=== PATIENT | female | born 1990 | race Hispanic/Latino ===

== ENCOUNTER 2018-10-09 17:35 | Outpatient (CLI) | payer MEDICAID ==
[2018-10-09 18:12] VITALS: BP 127/69
[2018-10-09] MEDS ORDERED: LACTATED RINGERS 500 ML IV ONE (18:12)
[2018-10-09 18:53] LABS: Bilirubin,Urine NEG (Negative); Blood,Urine NEG (Negative); Color,Urine Yellow (Yellow); Mucus,Urine FEW /HPF; Protein,Urine <15 mg/dL mg/dL (Negative); Urobilinogen,Urine < 2.0 mg/dL (<2.0); WBC,Urine < 1.0 /HPF (0.0-6.0)
== END 2018-10-09 19:15 | disposition home or self-care (01) ==
LOC: TRG 17:35
PROVIDERS: ATTEND Obstetrics & Gynecology
DX: O47.03 False labor before 37 completed weeks of gestation, third trimester (principal); Z3A.36 36 weeks gestation of pregnancy
CPT/HCPCS: 59025; 81001

== ENCOUNTER 2018-11-10 04:18 | Outpatient (CLI) | payer MEDICAID ==
[2018-11-10 05:47] VITALS: BP 126/73
== END 2018-11-10 05:42 | disposition home or self-care (01) ==
LOC: TRG 04:18
PROVIDERS: ATTEND Obstetrics & Gynecology
DX: O47.1 False labor at or after 37 completed weeks of gestation (principal); Z3A.41 41 weeks gestation of pregnancy
CPT/HCPCS: 59025

== ENCOUNTER 2018-11-10 20:11 | Inpatient (IN) | payer MEDICAID ==
[2018-11-10] MEDS ORDERED: MINERAL OIL PO PRN (20:30)
[2018-11-10] MEDS ORDERED: SUBLIMAZE IV PRN (20:30)
[2018-11-10] MEDS ORDERED: XYLOCAINE 2% INFILTRATI ONE (20:30)
[2018-11-10] MEDS ORDERED: BRETHINE SUB-Q PRN (20:30)
[2018-11-10] MEDS ORDERED: ZOFRAN IV PRN (20:30)
[2018-11-10] MEDS ORDERED: CERVIDIL VG ONE (20:30)
--- NOTE | 2018-11-10 20:47 | History and Physical Report ---
History of Present Illness Date of examination: 11/10/18 (pt presents for IOL @ 41 weeks) Date of admission: 11/10/18 20:11 History of present illness: EDC Confirmation: 10/31/2018 Gestational Age: 11 4/7 weeks Past History : 1 Term Births: 0 Premature Births: 0 Living Children: 0 Para: 0 Mult. Births: 0 Prev : 0 Prev. attempt? none Aborta: 0 Elect. Ab: 0 Spont. Ab: 0 Ectopics: 0 Risk Factors: Smoked Tobacco Use: Never smoker Smokeless Tobacco Use: Never Passive smoke exposure: no Drug use: no HIV high-risk behavior: low risk Alcohol use: yes Type: occ Drinks per day: <1 Seatbelt use: preg-aids counselor % Dietary Counseling: pn yes Past Medical History: migraines, since 2011, takes fioricet Past Surgical History: wisdom teeth removal Past Medical History Surgery (Non-conditioner tender): wisdom teeth removal Abnormal PAP: negative KI Exposure: negative Infertility: negative Uterine Anomaly: negative Uterine Surgery (not C/S): negative Other Gynecologic Problems: negative Family Hx: denies Social Hx: Patient is occ etoh, no tobacco, no drugs 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 of genital herpes: no Partner hx. of genital herpes: no Rash, Viral, or Febrile illness since last LMP? no Varicella/Chicken Pox Status: Immunized TB Risk: no Genetic History Congenital Heart Defect: Mom: no Dad: no Enrique Disease: Mom: no Dad: no Thalassemia Mom: no Dad: no Neural Tube Defect Mom: no Dad: no Down's Syndrome Mom: no Dad: no Bryant-Sachs Mom: no Dad: no Sickle Cell Disease/Trait Mom: no Dad: no Hemophilia Mom: no Dad: no Muscular Dystrophy Mom: no Dad: no Cystic Fibrosis Mom: no Dad: no Eula Chorea Mom: no Dad: no Mental Retardation Mom: no Dad: no Fragile X Mom: no Dad: no Other Genetic/Chromosomal Disorder Mom: no Dad: no Child w/other defect Mom: no Dad: no Enviromental Exposures Enviromental Exposures Reviewed Xray Exposure: no Medication, drug, or alcohol use since LMP: no Chemical/Other Exposure: no Exposure to Cat Liter: no Hx of Parvovirus (Fifth Disease): no Occupational Exposure to Children: none Active Medications (reviewed today): TYLENOL TABS () Current Allergies (reviewed today): * ANY TYPE OF PENICILLAN (Severe) Past History - Obstetrical History Expected Date of Delivery: 10/31/18 Actual Gestation: 41 Week(s) 3 Day(s) : 1 Para: 0 Hx # Term Pregnancies: 0 Number of Pregnancies: 0 Spontaneous Abortions: 0 Induced : 0 Number of Living Children: 0 Medications and Allergies Allergies Allergy/AdvReac Type Severity Reaction Status Date / Time Penicillins Allergy Severe Itching Verified 10/09/18 18:11 shellfish derived AdvReac Severe Anaphylaxis Verified 10/09/18 18:12 Active Meds: Active Medications Ephedrine Sulfate (Ephedrine Sulfate) 10 mg IV Q2M PRN PRN Reason: Hypotension Fentanyl (Sublimaze) 100 mcg IV Q2H PRN PRN Reason: Labor Pain Oxytocin/Sodium Chloride (Pitocin/Ns 20 Unit/1000ml Drip) 20 units in 1,000 mls @ 125 mls/hr IV DIRECT PHILIP Lactated Ringer's (Lactated Ringers) 1,000 mls @ 125 mls/hr IV DIRECT PHILIP Clindamycin HCl (Cleocin 900 Mg/50 Ml) 900 mg in 50 mls @ 100 mls/hr IV Q8HR PHILIP; Protocol Mineral Oil (Mineral Oil) 30 ml PO QHS PRN PRN Reason: Constipation Ondansetron HCl (Zofran) 4 mg IV Q8H PRN PRN Reason: Nausea And Vomiting Terbutaline Sulfate (Brethine) 0.25 mg SUB-Q ONCE PRN PRN Reason: Hyperstimulation/Hypertonicity - Physical Exam Breasts: Positive: deferred Cardiovascular: Regular rate, Normal S1, Normal S2 Lungs: Positive: Normal air movement Abdomen: Positive: normal appearance, soft, normal bowel sounds. Negative: distention, tenderness Genitourinary (Female): Positive: normal external genitalia Vulva: both: normal Vagina: Positive: normal moisture. Negative: discharge Cervix: Negative: lesion, discharge Uterus: Positive: normal size, normal contour Adnexa: both: normal Anus/Rectum: Positive: normal perianal skin, heme negative. Negative: rectal mass, hemorrhoids Extremities: Positive: edema Deep Tendon Reflex Grade: Normal +2 - Obstetrical FHR: category 1 Uterine Contraction Monitor Mode: External Cervical Dilatation: 2.5 (BBOW) Cervical Effacement Percentage: 80 station: -2 Uterine Contraction Pattern: Irregular Uterine Tone Measurement Phase: Resting Uterine Contraction Intensity: Mild Results All other labs normal. GBS POSITIVE HBsAg Screen Negative Negative *1 RPR Non Reactive Non Reactive *2 Rubella Antibodies, IgG 1.42 index Immune >0.99 *3 Non-immune <0.90 Equivocal 0.90 - 0.99 Immune >0.99 ABO Grouping O *4 Rh Factor Positive *5 Please note: Prior records for this patient's ABO / Rh type are not available for additional verification. Antibody Screen Negative Negative *6 WBC 7.9 x10E3/uL 3.4-10.8 *7 RBC 3.79 x10E6/uL 3.77-5.28 *8 Hemoglobin 11.7 g/dL 11.1-15.9 *9 Hematocrit 36.4 % 34.0-46.6 *10 MCV 96 fL 79-97 *11 MCH 30.9 pg 26.6-33.0 *12 MCHC 32.1 g/dL 31.5-35.7 *13 RDW 12.5 % 12.3-15.4 *14 Platelets 258 x10E3/uL 150-379 *15 Neutrophils 76 % Not Estab. *16 Lymphs 18 % Not Estab. *17 Monocytes 6 % Not Estab. *18 Eos 0 % Not Estab. *19 Basos 0 % Not Estab. *20 ! Immature Cells <No Reported Value> *21 Neutrophils (Absolute) 6.0 x10E3/uL 1.4-7.0 *22 Lymphs (Absolute) 1.4 x10E3/uL 0.7-3.1 *23 Monocytes(Absolute) 0.5 x10E3/uL 0.1-0.9 *24 Eos (Absolute) 0.0 x10E3/uL 0.0-0.4 *25 Baso (Absolute) 0.0 x10E3/uL 0.0-0.2 *26 ! Immature Granulocytes 0 % Not Estab. *27 ! Immature Grans (Abs) 0.0 x10E3/uL 0.0-0.1 *28 ! NRBC <No Reported Value> *29 Hematology Comments: <No Reported Value> *30 Tests: (2) Panel [id number] ([id number]) HIV Screen 4th Generation wRfx Non Reactive Non Reactive *31 Tests: (3) HCV Ab w/Rflx to Verification (990639) ! HCV Ab <0.1 s/co ratio 0.0-0.9 *32 Tests: (4) Comment: ([id number]) ! Comment: SPRCS *33 Non reactive HCV antibody screen is consistent with no HCV infection, unless recent infection is suspected or other evidence exists to indicate HCV infection. Tests: (5) Urine Culture, Routine ([id number]) Urine Culture, Routine Final report *34 Tests: (6) Result ([id number]) ! Result 1 No growth *35 Assessment and Plan - Patient Problems (1) 41 weeks gestation of Onset Date: ~11/10/18 Current Visit: Yes Status: Acute Plan to address problem: 28yo @ 41 weeks presents for IOL SVE 2-3,80,-2 GBS+ All orders in EMR
[2018-11-10] MEDS ORDERED: PITOCin/NS 20 UNIT/1000ML DRIP 20 UNITS/1,000 ML BAG IV SCH (21:00)
[2018-11-10] MEDS ORDERED: LACTATED RINGERS 1,000 ML IV SCH (21:00)
[2018-11-10] MEDS ORDERED: PITOCin/NS 30 UNIT/500ML 30,000 MILLIUNITS/500 ML BAG IV ONE (21:13)
[2018-11-10] MEDS: CLEOCIN 900 MG/50 mL 900 MG/50 ML BAG IV SCH (21:19)
[2018-11-10 21:59] LABS: Hematocrit 35.2 % (30.3-42.9); Hemoglobin 12.3 gm/dl (10.1-14.3); Mean Corpuscular HGB Conc 35 % (30-34); Mean Corpuscular Volume 90 fl (79-97); Platelet Count 207 K/mm3 (140-440); Red Cell Distribution Width 12.4 % (13.2-15.2)
[2018-11-10] MEDS ORDERED: PITOCin/NS 30 UNIT/500ML 30 UNITS/500 ML BAG IV SCH (22:00)
[2018-11-11] MEDS ORDERED: AMBIEN PO PRN
--- NOTE | 2018-11-11 05:41 | Progress Note ---
Assessment and Plan Pt breathing and cringing with each ctx SROM mod meconium SVE 4-5,90,-2 Pit @ 2mu Epidural bolus complete anesthesia called. Re-eval after epidural. - Patient Problems (1) 41 weeks gestation of Onset Date: ~11/10/18 Current Visit: Yes Status: Acute Subjective - Subjective Date of service: 11/11/18 (pt desires epidural) Principal diagnosis: IUP @ 41 weeks IOL; Meconium stained fluid Interval history: EDC Confirmation: 10/31/2018 Gestational Age: 11 4/7 weeks Past History : 1 Term Births: 0 Premature Births: 0 Living Children: 0 Para: 0 Mult. Births: 0 Prev : 0 Prev. attempt? none Aborta: 0 Elect. Ab: 0 Spont. Ab: 0 Ectopics: 0 Risk Factors: Smoked Tobacco Use: Never smoker Smokeless Tobacco Use: Never Passive smoke exposure: no Drug use: no HIV high-risk behavior: low risk Alcohol use: yes Type: occ Drinks per day: <1 Seatbelt use: preg-peer counselor % Dietary Counseling: pn yes Past Medical History: migraines, since 2011, takes fioricet Past Surgical History: wisdom teeth removal Past Medical History Surgery (Non-records associate): wisdom teeth removal Abnormal PAP: negative KI Exposure: negative Infertility: negative Uterine Anomaly: negative Uterine Surgery (not C/S): negative Other Gynecologic Problems: negative Family Hx: denies Social Hx: Patient is occ etoh, no tobacco, no drugs 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 of genital herpes: no Partner hx. of genital herpes: no Rash, Viral, or Febrile illness since last LMP? no Varicella/Chicken Pox Status: Immunized TB Risk: no Genetic History Congenital Heart Defect: Mom: no Dad: no Nerique Disease: Mom: no Dad: no Thalassemia Mom: no Dad: no Neural Tube Defect Mom: no Dad: no Down's Syndrome Mom: no Dad: no Bryant-Sachs Mom: no Dad: no Sickle Cell Disease/Trait Mom: no Dad: no Hemophilia Mom: no Dad: no Muscular Dystrophy Mom: no Dad: no Cystic Fibrosis Mom: no Dad: no [place] Chorea Mom: no Dad: no Mental Retardation Mom: no Dad: no Fragile X Mom: no Dad: no Other Genetic/Chromosomal Disorder Mom: no Dad: no Child w/other defect Mom: no Dad: no Enviromental Exposures Enviromental Exposures Reviewed Xray Exposure: no Medication, drug, or alcohol use since LMP: no Chemical/Other Exposure: no Exposure to Cat Liter: no Hx of Parvovirus (Fifth Disease): no Occupational Exposure to Children: none Active Medications (reviewed today): TYLENOL TABS () Current Allergies (reviewed today): * ANY TYPE OF PENICILLAN (Severe) Patient reports: movement normal, contractions Objective - Vital Signs Vital Signs: Vital Signs - 12hr 11/10/18 11/10/18 11/11/18 20:30 21:30 03:32 Pulse Rate 90 75 Respiratory 18 Rate Blood Pressure 125/65 144/65 11/11/18 04:09 Pulse Rate 71 Respiratory Rate Blood Pressure 130/62 - Exam Abdomen: Present: normal appearance, soft. Absent: distention, tenderness Uterus: Present: normal FHR: auscultation normal, category 1 Uterine Contraction Monitor Mode: External Cervical Dilatation: 4.5 (SROM meconium stained fluid) Cervical Effacement Percentage: 90 station: -2 Uterine Contraction Pattern: Regular Uterine Tone Measurement Phase: Resting Uterine Contraction Intensity: Strong/Firm Extremities: normal, edema Deep Tendon Reflex Grade: Normal +2 - Labs Labs: Abnormal Labs 11/10/18 21:35 MCHC 35 H RDW 12.4 L Laboratory Results - last 24 hr 11/10/18 11/10/18 21:35 21:35 WBC 10.4 RBC 3.90 Hgb 12.3 Hct 35.2 MCV 90 MCH 32 MCHC 35 H RDW 12.4 L Plt Count 207 Blood Type O POSITIVE Antibody Screen Negative
[2018-11-11] MEDS ORDERED: NARCAN 2 MG/2 ML IV PRN (06:29)
[2018-11-11] MEDS: CLEOCIN 900 MG/50 mL 900 MG/50 ML BAG IV SCH (06:31)
--- NOTE | 2018-11-11 06:32 | Anesthesia Consultation ---
Anesthesia Consult and Med Hx Date of service: 11/11/18 - Airway Anesthetic Teeth Evaluation: Poor ROM Head & Neck: Adequate Mental/Hyoid Distance: Adequate Mallampati Class: Class III Intubation Access Assessment: Probably Good - Pulmonary Exam CTA: Yes - Cardiac Exam Cardiac Exam: RRR - Pre-Operative Health Status ASA Pre-Surgery Classification: ASA3 Proposed Anesthetic Plan: Epidural - Pulmonary Hx Smoking: No Hx Asthma: No Hx Respiratory Symptoms: No SOB: No COPD: No Home Oxygen Therapy: No Hx Pneumonia: No Hx Sleep Apnea: No - Cardiovascular System Hx Hypertension: No Hx Coronary Artery Disease: No Hx Heart Attack/AMI: No Hx Angina: No Hx Percutaneous Transluminal Coronary Angioplasty (PTCA): No Hx Cardia Arrhythmia: No Hx Pacemaker: No Hx Internal Defibrillator: No Hx Valvular Heart Disease: No Hx Heart Murmur: No Hx Peripheral Vascular Disease: No - Central Nervous System Hx Neuromuscular Disorder: No Hx Seizures: No CVA: No Hx Back Pain: No Hx Psychiatric Problems: No - Gastrointestinal Hx Ulcer: No Hx Gastroesophageal Reflux Disease: Yes - Endocrine Hx Renal Disease: No Hx End Stage Renal Disease: No Hx Cirrhosis: No Hx Liver Disease: No Hx Insulin Dependent Diabetes: No Hx Non-Insulin Dependent Diabetes: No Hx Thyroid Disease: No Hx Hypothyroidism: No Hx Hyperthyroidism: No - Hematic Hx Anemia: No Hx Sickle Cell Disease: No - Other Systems Hx Alcohol Use: No Hx Substance Use: No Hx Cancer: No Hx Obesity: Yes (bmi 42)
--- NOTE | 2018-11-11 06:38 | Event Note ---
Date: 11/11/18 (pt comfortable with epidural) Called urgently to room Deep variables following epdural placement SVE 7,90,-2 ISE/IUPC placed Pitocin off. Turned/repositioned, O2 vis facemask, fluid bolus FHR now Cat 2 with marked variability with variable decels Will continue close observation made aware
[2018-11-11] MEDS ORDERED: fentaNYL-BUPIV 2 MCG/ML-0.125% 200 MCG/100 ML BAG EPIDURAL SCH (07:00)
[2018-11-11] MEDS ORDERED: GENTAMICIN/NS 80 MG/100 ML 100 ML IV NR (07:00)
[2018-11-11] MEDS ORDERED: PEPCID IV ONE ×2 (07:16→07:21)
[2018-11-11] MEDS ORDERED: GENTAMICIN 80 MG in NACL 0.9% 100 ML IV ONE (07:16)
[2018-11-11] MEDS ORDERED: BICITRA PO ONE (07:16)
[2018-11-11] MEDS ORDERED: REGLAN IV ONE (07:16)
[2018-11-11] MEDS ORDERED: GENTAMICIN/NS 80 MG/100 ML 100 ML IV ONE (07:21)
[2018-11-11] MEDS ORDERED: REGLAN ONE (07:21)
--- NOTE | 2018-11-11 07:23 | Progress Note ---
Assessment and Plan Dr.Royster hall Pt made aware of need for section Risks damage to surrounding organs, hysterectomy, need for blood transfusion, need for c/s with future pregnancies Consented - Patient Problems (1) 41 weeks gestation of Onset Date: ~11/10/18 Current Visit: Yes Status: Acute Subjective - Subjective Date of service: 11/11/18 (deep prolong deceleration; decision to move to C/S) Principal diagnosis: IUP @ 41 weeks IOL; Meconium stained fluid Interval history: EDC Confirmation: 10/31/2018 Gestational Age: 11 4/7 weeks Past History : 1 Term Births: 0 Premature Births: 0 Living Children: 0 Para: 0 Mult. Births: 0 Prev : 0 Prev. attempt? none Aborta: 0 Elect. Ab: 0 Spont. Ab: 0 Ectopics: 0 Risk Factors: Smoked Tobacco Use: Never smoker Smokeless Tobacco Use: Never Passive smoke exposure: no Drug use: no HIV high-risk behavior: low risk Alcohol use: yes Type: occ Drinks per day: <1 Seatbelt use: preg-residential youth counselor % Dietary Counseling: pn yes Past Medical History: migraines, since 2011, takes fioricet Past Surgical History: wisdom teeth removal Past Medical History Surgery (Non-wafer fabrication technician): wisdom teeth removal Abnormal PAP: negative KI Exposure: negative Infertility: negative Uterine Anomaly: negative Uterine Surgery (not C/S): negative Other Gynecologic Problems: negative Family Hx: denies Social Hx: Patient is occ etoh, no tobacco, 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 of genital herpes: no Partner hx. of genital herpes: no Rash, Viral, or Febrile illness since last LMP? no Varicella/Chicken Pox Status: Immunized TB Risk: no Genetic History Congenital Heart Defect: Mom: no Dad: no Enrique Disease: Mom: no Dad: no Thalassemia Mom: no Dad: no Neural Tube Defect Mom: no Dad: no Down's Syndrome Mom: no Dad: no Bryant-Sachs Mom: no Dad: no Sickle Cell Disease/Trait Mom: no Dad: no Hemophilia Mom: no Dad: no Muscular Dystrophy Mom: no Dad: no Cystic Fibrosis Mom: no Dad: no [place] Chorea Mom: no Dad: no Mental Retardation Mom: no Dad: no Fragile X Mom: no Dad: no Other Genetic/Chromosomal Disorder Mom: no Dad: no Child w/other defect Mom: no Dad: no Enviromental Exposures Enviromental Exposures Reviewed Xray Exposure: no Medication, drug, or alcohol use since LMP: no Chemical/Other Exposure: no Exposure to Cat Liter: no Hx of Parvovirus (Fifth Disease): no Occupational Exposure to Children: none Active Medications (reviewed today): TYLENOL TABS () Current Allergies (reviewed today): * ANY TYPE OF PENICILLAN (Severe) Patient reports: movement normal, contractions Objective - Vital Signs Vital Signs: Vital Signs - 12hr 11/10/18 11/10/18 11/11/18 20:30 21:30 03:32 Pulse Rate 90 75 Respiratory 18 Rate Blood Pressure 125/65 144/65 11/11/18 11/11/18 11/11/18 04:09 05:44 06:03 Pulse Rate 71 93 H 88 Respiratory Rate Blood Pressure 130/62 129/76 137/71 11/11/18 11/11/18 11/11/18 06:05 06:10 06:12 Pulse Rate 76 115 H 90 Respiratory Rate Blood Pressure 119/64 103/48 111/59 11/11/18 11/11/18 11/11/18 06:14 06:16 06:18 Pulse Rate 78 96 H 86 Respiratory Rate Blood Pressure 117/64 118/62 123/68 11/11/18 11/11/18 11/11/18 06:20 06:22 06:25 Pulse Rate 100 H 126 H 110 H Respiratory Rate Blood Pressure 118/61 105/59 119/58 11/11/18 11/11/18 11/11/18 06:26 06:33 06:40 Pulse Rate 72 72 81 Respiratory Rate Blood Pressure 117/54 115/65 114/53 11/11/18 11/11/18 11/11/18 06:44 06:49 06:55 Pulse Rate 72 69 68 Respiratory Rate Blood Pressure 130/60 124/56 127/60 - Exam Breasts: deferred Cardiovascular: Regular rate Lungs: Normal air movement Abdomen: Present: normal appearance, soft. Absent: distention, tenderness Uterus: Present: normal FHR: auscultation normal, category 3 Uterine Contraction Monitor Mode: Internal Cervical Dilatation: 7 Cervical Effacement Percentage: 90 station: -3 Uterine Contraction Pattern: Regular Uterine Tone Measurement Phase: Resting Uterine Contraction Intensity: Moderate Extremities: edema Deep Tendon Reflex Grade: Normal +2 - Labs Labs: Abnormal Labs 11/10/18 21:35 MCHC 35 H RDW 12.4 L Laboratory Results - last 24 hr 11/10/18 11/10/18 21:35 21:35 WBC 10.4 RBC 3.90 Hgb 12.3 Hct 35.2 MCV 90 MCH 32 MCHC 35 H RDW 12.4 L Plt Count 207 Blood Type O POSITIVE Antibody Screen Negative
[2018-11-11] MEDS ORDERED: MARCAINE 0.5% INFILTRATI ONE (07:25)
[2018-11-11] MEDS ORDERED: XYLOCAINE MPF 2% ONE ×3 (07:28→08:05)
[2018-11-11] MEDS ORDERED: ZOFRAN ONE (07:28)
[2018-11-11] MEDS ORDERED: TORADOL ONE (07:28)
[2018-11-11] MEDS ORDERED: NACL 0.9% IR ONE (07:40)
[2018-11-11] MEDS ORDERED: WATER FOR IRRIG STERILE IR ONE (07:40)
[2018-11-11] MEDS ORDERED: DIPRIVAN 10 MG/ML IV ONE (07:43)
[2018-11-11] MEDS ORDERED: LACTATED RINGERS 1,000 ML IV SCH (08:00)
[2018-11-11] MEDS ORDERED: PITOCin/NS 20 UNIT/1000ML DRIP 20 UNITS/1,000 ML BAG IV SCH ×2 (08:00→16:15)
[2018-11-11] MEDS ORDERED: QUELICIN ONE (08:14)
--- NOTE | 2018-11-11 08:44 | Anesthesia Day of Surgery ---
Anesthesia Day of Surgery - Day of Surgery Patient Examined: Yes Patient H&P Reviewed: Yes Patient is NPO: Yes Beta Blockers: No Cardiac Clearance: No Pulmonary Clearance: No Curtis's Test: N/A
[2018-11-11] MEDS ORDERED: DILAUDID IV PRN ×2 (08:46)
[2018-11-11] MEDS ORDERED: BENADRYL IV PRN (08:46)
--- NOTE | 2018-11-11 08:46 | Post Anesthesia Evaluation ---
- Post Anesthesia Evaluation Patient Participated: Yes Airway Patent: Yes Stable Respiratory Function: Yes Nausea/Vomiting: No Temp > 96.8F: Yes Pain Manageable: Yes Adequeate Hydration: Yes Anesthesia Complications: No Block Receding Appropriately: Yes Patient on Ventilator: Yes
[2018-11-11] MEDS ORDERED: SODIUM CHLORIDE FLUSH SYRINGE 10 ML IV NR ×2 (09:00→16:15)
--- NOTE | 2018-11-11 09:01 | Operative Report ---
Operative Report Operative Report: Date: 11/11/2018 Preoperative diagnosis: 1. Intrauterine at 41 weeks 2. Nonreassuring heart rate tracing, category 3 heart tones 3. Pelvic mass index 42 Postoperative diagnosis: 1. Intrauterine at 41 weeks 2. Nonreassuring heart rate tracing, category 3 heart tones 3. Pelvic mass index 42 Procedure: Low uterine transverse incision for delivery Surgeon: Melita Posadas MD Life Educator: Noemí Mixon CNM Anesthesia: Epidural Anesthesiologist: [] Estimated blood loss: 800 mL Urine out: 100 mL Findings: Live born female . Weight 7 lbs. 5 oz. Apgars 7 at 1 minute and 8 at 5 minutes. Uterus grossly normal, tubes grossly normal, ovaries grossly normal. Procedure: At my arrival patient was being transferred to the OR table due to report from [facility] of no reassuring heart rate tracing category 3 heart rate tracing. In the OR patient was alert and appropriately responsive questions were asked, epidural anesthesia was bolused. heart tones were unable to be auscultated. She was then placed in the left lateral tilt position, and prepped and draped in the usual sterile fashion. Timeout was performed, and an appropriate level of anesthesia was noted, a Pfannenstiel incision was made and extended to the fascia which was incised and extended in the lateral directions. The overlying fascia was sharply dissected away from the underlying rectus muscles in the superior and inferior directions. The midline was entered bluntly. The vesicouterine fold was incised and with blunt dissection the bladder flap was created. A transverse incision was made in the lower uterine segment and extended in superiolateral direction with finger fractionation. Thick meconium stained fluid was noted. The infant was delivered from cephalic LOT position. Mouth and nose were bulb suctioned. Spontaneous cry and excellent tone were noted. Cord was doubly clamped and cut. The was given to /resuscitation team present. The placenta was manually extracted. The uterus was then exteriorized and cleared of any further products of conception or placental tissue. The incision was reapproximated using 0 Vicryl in a running interlocking stitch. Grossly normal uterus, tubes and ovaries were noted. Once hemostasis was noted, the uterus was allowed back into the pelvic cavity. The pelvis was irrigated with warm normal saline. Again hemostasis was noted . Surgicel applied for further hemostasis. Interceed was then placed to prevent adhesions. Then attention was turned to the rectus muscles. Once hemostasis was noted, the fascia was reapproximated using 0 Vicryl running stitch fashion. Once hemostasis was noted, the subcuticular adipose tissue was reapproximated using 0 Vicryl in simple interrupted fashion 3. Oncethis was noted, skin incision was reapproximated using 4-0 Vicryl on a Stuart needle in a subcuticular manner. Counts were correct 3. Patient tolerated procedure well state recovery room in stable condition.
[2018-11-11] MEDS ORDERED: ZOFRAN IV PRN ×2 (12:00→16:15)
[2018-11-11] MEDS ORDERED: MILK OF MAGNESIA PO PRN (16:15)
[2018-11-11] MEDS ORDERED: MYLICON PO PRN (16:15)
[2018-11-11] MEDS ORDERED: TUCKS PAD TP PRN (16:15)
[2018-11-11] MEDS ORDERED: NARCAN 0.4 MG/1 ML IV PRN (16:15)
[2018-11-11] MEDS ORDERED: LANSINOH TP PRN (16:15)
[2018-11-11] MEDS ORDERED: MORPHINE IV PRN ×2 (16:15)
[2018-11-11] MEDS ORDERED: D5LR 1,000 ML IV SCH (16:15)
[2018-11-11] MEDS ORDERED: PERCOCET 5/325 PO PRN (16:15)
[2018-11-11] MEDS ORDERED: TYLENOL PO PRN (16:15)
[2018-11-11] MEDS: TORADOL IV SCH ×2 (16:29→21:43)
[2018-11-11] MEDS: CLEOCIN 600 MG/50 mL 600 MG/50 ML BAG IV SCH (17:00)
[2018-11-11 21:16] LABS: Hematocrit 27.9 % (30.3-42.9); Hemoglobin 9.3 gm/dl (10.1-14.3)
[2018-11-12] MEDS: CLEOCIN 600 MG/50 mL 600 MG/50 ML BAG IV SCH (01:34)
[2018-11-12] MEDS: TORADOL IV SCH ×2 (05:19→10:45)
[2018-11-12] MEDS ORDERED: BOOSTRIX IM ONE (06:00)
--- NOTE | 2018-11-12 08:01 | Progress Note ---
Assessment and Plan - Patient Problems (1) delivery delivered Onset Date: ~11/11/18 Current Visit: Yes Status: Acute Plan to address problem: Pt resting VSS FF @ umb Lochia small Dressing D&I H&H 12/19 drop r/t blood loss from surgery No s/sx of anemia Doing well s/p c/s P: continue pathway Advance diet and activity as tolerated Remove dressing today. Baby remains in NICU with "breathing concerns" Subjective - Subjective Date of service: 11/12/18 (no c/o voiced) Principal diagnosis: Day # 1 s/p section for distress Interval history: EDC Confirmation: 10/31/2018 Gestational Age: 11 4/7 weeks Past History : 1 Term Births: 0 Premature Births: 0 Living Children: 0 Para: 0 Mult. Births: 0 Prev : 0 Prev. attempt? none Aborta: 0 Elect. Ab: 0 Spont. Ab: 0 Ectopics: 0 Risk Factors: Smoked Tobacco Use: Never smoker Smokeless Tobacco Use: Never Passive smoke exposure: no Drug use: no HIV high-risk behavior: low risk Alcohol use: yes Type: occ Drinks per day: <1 Seatbelt use: preg-deputy general counsel % Dietary Counseling: pn yes Past Medical History: migraines, since 2011, takes fioricet Past Surgical History: wisdom teeth removal Past Medical History Surgery (Non-buildings painter): wisdom teeth removal Abnormal PAP: negative KI Exposure: negative Infertility: negative Uterine Anomaly: negative Uterine Surgery (not C/S): negative Other Gynecologic Problems: negative Family Hx: denies Social Hx: Patient is occ etoh, no tobacco, no drugs 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 of genital herpes: no Partner hx. of genital herpes: no Rash, Viral, or Febrile illness since last LMP? no Varicella/Chicken Pox Status: Immunized TB Risk: no Genetic History Congenital Heart Defect: Mom: no Dad: no Enrique Disease: Mom: no Dad: no Thalassemia Mom: no Dad: no Neural Tube Defect Mom: no Dad: no Down's Syndrome Mom: no Dad: no Bryant-Sachs Mom: no Dad: no Sickle Cell Disease/Trait Mom: no Dad: no Hemophilia Mom: no Dad: no Muscular Dystrophy Mom: no Dad: no Cystic Fibrosis Mom: no Dad: no [place] Chorea Mom: no Dad: no Mental Retardation Mom: no Dad: no Fragile X Mom: no Dad: no Other Genetic/Chromosomal Disorder Mom: no Dad: no Child w/other defect Mom: no Dad: no Enviromental Exposures Enviromental Exposures Reviewed Xray Exposure: no Medication, drug, or alcohol use since LMP: no Chemical/Other Exposure: no Exposure to Cat Liter: no Hx of Parvovirus (Fifth Disease): no Occupational Exposure to Children: none Active Medications (reviewed today): TYLENOL TABS () Current Allergies (reviewed today): * ANY TYPE OF PENICILLAN (Severe) Patient reports: appetite normal, voiding normally, pain well controlled, flatus, ambulating normally [place]: in NICU Objective - Vital Signs Latest vital signs: Vital Signs Temp Pulse Resp BP BP Pulse Ox 11/12/18 05:16 98.0 F 81 20 138/72 100 11/12/18 00:05 98.0 F 100 H 20 124/70 97 11/11/18 21:44 97.9 F 100 H 20 147/83 98 11/11/18 15:20 98.7 F 88 20 115/68 11/11/18 12:25 98.7 F 78 20 102/63 11/11/18 11:08 98.1 F 87 20 103/43 11/11/18 09:50 77 19 105/53 98 11/11/18 09:35 73 14 104/48 99 11/11/18 09:20 78 19 106/84 97 11/11/18 09:05 78 18 103/55 97 11/11/18 08:50 74 18 117/69 98 11/11/18 08:45 74 18 118/69 98 11/11/18 08:40 68 19 127/68 100 11/11/18 08:35 98.4 F 68 22 110/56 98 Intake and Output 11/11/18 11/12/18 11/12/18 22:59 06:59 14:59 Intake Total 500 120 Output Total 510 500 Balance -10 -380 Intake: IV 50 CLEOCIN 600 MG/50 mL 600 50 mg In 50 ml @ 100 mls/hr IV Q8H [facility] Rx#:[id number] Oral 450 120 Output: Urine 510 500 Indwelling Catheter 510 Void 500 Other: Total, Intake Amount 90 120 Total, Output Amount 400 500 - Exam Breasts: Present: normal Cardiovascular: Present: Regular rate Lungs: Present: Normal air movement Abdomen: Present: normal appearance, soft, normal bowel sounds Uterus: Present: normal, firm, fundal height at umbilicus Extremities: Present: normal Deep Tendon Reflex Grade: Normal +2 Incision: Present: normal, dry, intact, dressed (to be removed this AM) - Labs Labs: Abnormal lab results 11/11/18 Range/Units 21:04 Hgb 9.3 L D (10.1-14.3) gm/dl Hct 27.9 L D (30.3-42.9) %
[2018-11-12] MEDS: IBUPROFEN PO PRN ×2 (15:35→22:10)
[2018-11-13] MEDS: IBUPROFEN PO PRN ×3 (03:39→23:06)
--- NOTE | 2018-11-13 09:20 | Progress Note ---
Assessment and Plan POD2 Patient sitting on side of bed pumping breast mild for in NICU. Pt reports feeling well, she denies any complaints or concerns. Pt reports pain is well controlled with pain medications ordered. Fundus is firm, ML, U/2. Vaginal bleeding small, patient denies any heavy bleeding or clots. Incision is well- approximated, healing well, no bleeding or drainage noted, no s/s infection. DWP hygiene./care for incisional area. Encouraged pt to continue frequent ambulation and use of IS. DWP post delivery H&H, she denies any dizziness or feeling faint with ambulation or position changes. VSSAF. Continue current post op pathway. Plan for discharge tomorrow morning. Subjective - Subjective Date of service: 11/13/18 Principal diagnosis: Day # 2 s/p section for distress Patient reports: appetite normal, voiding normally, pain well controlled, flatus, ambulating normally [place]: doing well, in NICU Objective - Vital Signs Latest vital signs: Vital Signs Temp Pulse Resp BP BP Pulse Ox 11/13/18 01:26 97.8 F 91 H 18 130/73 98 11/12/18 18:00 0 F L 0 L 0 L 1/1 0 L Intake and Output 11/12/18 11/13/18 11/13/18 23:59 07:59 15:59 Intake Total 120 360 Output Total 500 Balance -380 360 Intake: Oral 120 Intake, Free Water 360 Output: Urine 500 Void 500 Other: Total, Intake Amount 120 Total, Output Amount 500 # Voids Void 1 - Exam Breasts: Present: normal Cardiovascular: Present: Regular rate, Normal S1, Normal S2 Lungs: Present: Clear to auscultation, Normal air movement Abdomen: Present: normal appearance, soft, normal bowel sounds Vulva: both: normal Uterus: Present: normal, firm, fundal height below umbilicus Extremities: Present: normal Deep Tendon Reflex Grade: Normal +2 Incision: Present: normal, dry, intact
[2018-11-13] MEDS: COLACE PO SCH ×2 (12:26→23:06)
[2018-11-13] MEDS: FEOSOL PO SCH ×2 (12:26→23:06)
--- NOTE | 2018-11-14 08:32 | Discharge Summary ---
Providers - Providers Date of Admission: 11/10/18 20:11 Date of discharge: 11/14/18 Attending physician: AMBER RAMÍREZ 11/11/18 16:15 Consult to Support Services Specialist [CONS] Routine Reason For Exam: Primary care physician: AMBER RAMÍREZ Hospitalization Reason for admission: Post dates induction Condition: Good Pertinent studies: Postop H/H 9.3/27.9, asymptomatic anemia d/t acute blood loss. Procedures: Primary C/S. Hospital course: Uncomplicated C/S and postop course. Disposition: DC-01 TO HOME OR SELFCARE - Discharge Diagnoses (1) delivery delivered Status: Acute Core Measure Documentation - Palliative Care Palliative Care/ Comfort Measures: Not Applicable - Core Measures Any of the following diagnoses?: none Exam - Constitutional Vitals: Temp Pulse Resp BP Pulse Ox 97.8 F 95 H 18 130/73 96 11/14/18 01:41 11/14/18 01:41 11/14/18 01:41 11/14/18 01:41 11/14/18 01:41 General appearance: Present: no acute distress, well-nourished - EENT Eyes: Present: PERRL ENT: hearing intact, clear oral mucosa - Neck Neck: Present: supple, normal ROM - Respiratory Respiratory effort: normal Respiratory: bilateral: CTA - Cardiovascular Rhythm: regular Heart Sounds: Present: S1 & S2. Absent: rub, click - Extremities Extremities: pulses symmetrical, No edema Peripheral Pulses: within normal limits - Abdominal General gastrointestinal: Present: soft, non-tender, non-distended, normal bowel sounds Female genitourinary: Present: normal - Rectal Rectal Exam: deferred - Integumentary Integumentary: Present: clear, warm, dry - Musculoskeletal Musculoskeletal: gait normal, strength equal bilaterally - Psychiatric Psychiatric: appropriate mood/affect, intact judgment & insight - Neurologic Neurologic: CNII-XII intact, moves all extremities - Additional findings Additional findings: Lochia scant. Fundus firm. Incision dry and intact. Pumping breastmilk for in NICU. Plan Activity: advance as tolerated Diet: regular Wound: open to air, keep clean and dry Follow up with: AMBER RAMÍREZ MD [Primary Care Provider] - 7 Days (Congratulations. Please contact our office at [phone] to schedule your incision check in 1 week. Call for any questions or concerns.) Prescriptions: Docusate Sodium [Colace] 100 mg PO BID PRN #60 capsule PRN Reason: Constipation Ferrous Sulfate [Feosol 325 MG tab] 325 mg PO BID #60 tablet Ibuprofen [Motrin 800 MG tab] 800 mg PO TID PRN #30 tablet PRN Reason: Pain oxyCODONE /ACETAMINOPHEN [Percocet 5/325 mg] 1 - 2 tab PO Q4HR PRN #20 tablet PRN Reason: Pain
[2018-11-14 08:42] VITALS: BP 136/87
[2018-11-14] MEDS: COLACE PO SCH (10:01)
[2018-11-14] MEDS: FEOSOL PO SCH (10:01)
[2018-11-14] MEDS: IBUPROFEN PO PRN (10:06)
== END 2018-11-14 13:50 | disposition home or self-care (01) | DRG 765 ==
LOC: LD 20:11 → OB 11-11 10:51
PROVIDERS: ADMIT Obstetrics & Gynecology; ATTEND Obstetrics & Gynecology
PROC: 10D00Z1 Extraction of Products of Conception, Low, Open Approach (ICD-10-PCS; principal; 2018-11-11)
DX: O48.0 Post-term pregnancy (principal); D62 Acute posthemorrhagic anemia; O99.824 Streptococcus B carrier state complicating childbirth; O77.0 Labor and delivery complicated by meconium in amniotic fluid; O99.62 Diseases of the digestive system complicating childbirth; K21.9 Gastro-esophageal reflux disease without esophagitis; O99.214 Obesity complicating childbirth; E66.9 Obesity, unspecified; O76 Abnormality in fetal heart rate and rhythm complicating labor and delivery; R19.00 Intra-abdominal and pelvic swelling, mass and lump, unspecified site; O99.89 Other specified diseases and conditions complicating pregnancy, childbirth and the puerperium; O99.02 Anemia complicating childbirth; Z37.0 Single live birth; Z3A.41 41 weeks gestation of pregnancy; Z88.0 Allergy status to penicillin; Z91.013 Allergy to seafood
CPT/HCPCS: 36415; 85014; 85018; 85027; 86592; 86850; 86900; 86901; 88307; 90471; 90715; 96360; 96365; G0378; C1765; J0330; J1580; J1885; J2405; J2590; J2704; J2765; J3010; J7120; J7121

== ENCOUNTER 2018-11-23 12:50 | Inpatient (IN) | payer MEDICAID ==
[2018-11-23] MEDS ORDERED: CLEOCIN 600 MG/50 mL 600 MG/50 ML BAG IV SCH (14:00)
--- NOTE | 2018-11-23 18:35 | History and Physical Report ---
History of Present Illness Date of examination: 11/23/18 Date of admission: 11/23/18 16:45 Chief complaint: Wound infection History of present illness: This is a 28 year-old female s/p delivery 11/11/2018 for nonreassuring heart tracing that occurred after progressing to 7cm cervical dilation on induction day 2 for post term. She presented to the office Saturday for incision check. At that time the area above and below the incision was red, firmess noted above incision appearing to be cellulitis. Patient denied fevers but reported some night sweats. After assessing the incision, she was started on Bactrim (no defects were noted at the incision site). She called today complaining of yellow drainage from incision. She denies fever or any other changes with incision. She's admitted for IV ABX. Patient is agreeable with plan. Past History : 1 Term Births: 1 Premature Births: 0 Living Children: 1 Para: 0 Mult. Births: 0 Prev : 1 Aborta: 0 Elect. Ab: 0 Spont. Ab: 0 Ectopics: 0 Risk Factors: Smoked Tobacco Use: Never smoker Smokeless Tobacco Use: Never Passive smoke exposure: no Drug use: no HIV high-risk behavior: low risk Alcohol use: yes Type: occ Drinks per day: <1 Seatbelt use: preg-career guidance counselor % Dietary Counseling: pn yes Past Medical History: migraines, since 2011, takes fioricet Past Surgical History: wisdom teeth removal delivery Abnormal PAP: negative KI Exposure: negative Infertility: negative Uterine Anomaly: negative Uterine Surgery (not C/S): negative Other Gynecologic Problems: negative Family Hx: denies Social Hx: Patient is occ etoh, no tobacco, 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 of genital herpes: no Partner hx. of genital herpes: no Rash, Viral, or Febrile illness since last LMP? no Varicella/Chicken Pox Status: Immunized TB Risk: no Enviromental Exposures Enviromental Exposures Reviewed Xray Exposure: no Medication, drug, or alcohol use since LMP: no Chemical/Other Exposure: no Exposure to Cat Liter: no Hx of Parvovirus (Fifth Disease): no Occupational Exposure to Children: none Active Medications (reviewed today): PNV BACTRIM DS Current Allergies (reviewed today): * ANY TYPE OF PENICILLAN (Severe) SHELLFISH Medications and Allergies Allergies Allergy/AdvReac Type Severity Reaction Status Date / Time Penicillins Allergy Severe Itching Verified 10/09/18 18:11 shellfish derived AdvReac Severe Anaphylaxis Verified 10/09/18 18:12 Home Medications Medication Instructions Recorded Confirmed Last Taken Type Ibuprofen [Motrin 800 MG tab] 800 mg PO TID PRN #30 tablet 11/11/18 Unknown Rx Pnv,Calcium 72/Iron/Folic Acid 1 tab PO DAILY 11/11/18 11/11/18 1 Day Ago History [Pnv Plus Multivit Tab] ~11/10/18 oxyCODONE /ACETAMINOPHEN [Percocet 1 - 2 tab PO Q4HR PRN #20 tablet 11/11/18 Unknown Rx 5/325 mg] Docusate Sodium [Colace] 100 mg PO BID PRN #60 capsule 11/13/18 Unknown Rx Ferrous Sulfate [Feosol 325 MG tab] 325 mg PO BID #60 tablet 11/13/18 Unknown Rx Active Meds: Active Medications Clindamycin HCl (Cleocin 600 Mg/50 Ml) 600 mg in 50 mls @ 100 mls/hr IV Q8HR [facility]; Protocol Review of Systems All systems: negative Gastrointestinal: nausea Exam - Constitutional Vitals: Temp Pulse Resp BP Pulse Ox 99.5 F 97 H 14 139/75 97 11/23/18 18:23 11/23/18 18:23 11/23/18 18:23 11/23/18 18:23 11/23/18 18:23 General appearance: Present: no acute distress - Respiratory Respiratory effort: normal Respiratory: bilateral: CTA - Extremities Extremities: no ischemia, No edema - Abdominal General gastrointestinal: Present: soft, normal bowel sounds - Integumentary Integumentary: Present: erythema (see images(camera borrowed from ED, images obtained anc the camera was taken back to ED). Midline ~1cm defect probed with copious serosanguinous drainage. No odor, no purulent drainage. Kerlix placed in incision and dressed with Kerlix and ABD pad. Fascia feels intact. ) - Psychiatric Psychiatric: appropriate mood/affect, memory intact - Neurologic Neurologic: CNII-XII intact Assessment and Plan POD#12 /sp delivery - Patient Problems (1) Wound dehiscence Current Visit: Yes Status: Acute (2) Cellulitis of skin Current Visit: Yes Status: Acute (3) delivery delivered Onset Date: ~11/11/18 Current Visit: No Status: Acute Plan to address problem: She was GBS positive in the Will start Clindamycin Wound culture obtained VSS no obvious evidence of sepsis Surgical and wound consultation. Plan of care discussed with patient who voiced understanding and agrees
[2018-11-23 18:53] LABS: Basophils # (Auto) 0.1 K/mm3 (0.0-0.1); Basophils % (Auto) 0.5 % (0.0-1.8); Eosinophils % (Auto) 0.4 % (0.0-4.3); Hemoglobin 9.8 gm/dl (10.1-14.3); Lymphocytes # (Auto) 1.2 K/mm3 (1.2-5.4); Lymphocytes % (Auto) 11.1 % (13.4-35.0); Mean Corpuscular HGB Conc 34 % (30-34); Mean Corpuscular Volume 91 fl (79-97); Monocytes # (Auto) 0.5 K/mm3 (0.0-0.8); Monocytes % (Auto) 4.7 % (0.0-7.3); Platelet Count 472 K/mm3 (140-440); Red Blood Count 3.17 M/mm3 (3.65-5.03); Red Cell Distribution Width 12.4 % (13.2-15.2)
[2018-11-23 19:13] LABS: Alanine Aminotransferase 12 units/L (7-56); BUN/Creatinine Ratio 16; Blood Urea Nitrogen 11 mg/dL (7-17); Calcium 8.7 mg/dL (8.4-10.2); Hemolysis Index 1
--- NOTE | 2018-11-23 19:28 | Event Note ---
Date: 11/23/18 ID consulted, spoke with Dr. Salomon who recommends Vancomycin instead of clindamycin. May use Vancomycin while breast feeding. Also MRSA PCR ordered. RN aware of change in antibiotic and nasal swab to be performed for MRSA. Attempting to contact Dr. Fall Plan of care extensive discussed with RN, no questions
[2018-11-23] MEDS ORDERED: TYLENOL PO PRN (19:29)
[2018-11-23] MEDS ORDERED: PERCOCET 5/325 PO PRN (19:29)
[2018-11-23] MEDS ORDERED: VANCOMYCIN/NS 1 GM/250 ML 1 GM/250 ML BAG IV SCH (20:00)
[2018-11-23] MEDS: VANCOMYCIN 2,500 MG in NACL 0.9% 500 ML 500 ML IV SCH (20:40)
[2018-11-24] MEDS: IBUPROFEN PO PRN ×3 (02:09→18:30)
[2018-11-24] MEDS: FEOSOL PO SCH ×3 (02:09→09:48)
[2018-11-24] MEDS: VANCOMYCIN 2,500 MG in NACL 0.9% 500 ML 500 ML IV SCH (09:47)
[2018-11-24] MEDS: LACTATED RINGERS 1,000 ML IV SCH (09:47)
--- NOTE | 2018-11-24 10:05 | Consultation ---
History of Present Illness - Reason for Consult Consult date: 11/24/18 csection wound drainage Requesting physician: BOOM POSADAS - History of Present Illness 28 y/o female with no past medical history s/p on 11/11/2018, she was doing ok until 11/21/2018 she noted increased serous drainage and incision induration. She deneis any fever or chills. She then noted drainage turned yellow and decided to come for evaluation. She was seen by Dr Posadas at the [facility] on 11/21 and placed on bactrim po. She denies previous history of MRSA/Staph boils. She is . On admission, temp 99.5, HR 97, R 14, BP 139/75. WBC 10.8. Hg 9.8. ID consulted for further management. Review of Systems: General: no fever, chills, no malaise Cutaneous: + wound with induration and tenderness/drainage Head: no headaches or injury Eyes: no changes in vision, eye pain, double vision Ears: no ear pain, ear discharge, ringing or hearing loss Nose: no nose bleeding, stuffiness Mouth & throat: no bleeding gums, no horseness, no dental problems, or swollen glands Neck: no pain, node enlargement/lumps, tyroid enlargement or tenderness Respiratory: no SOB, no cough, no ARIAS, wheezing, sputum, hemoptysis, pleuritic chest pain Cardiovascular: no chest pain, leg edema, cyanosis, ARIAS, orthopnea Musculoskeletal: no edema Gastrointestinal: no nausea, no vomiting, no hematemesis, diarrhea, constipation, melena, bright red blood in stools, fecal incontinence, jaundice Genitourinary/Reproductive: no frequent urination, dysuria, hematuria, incontinence Neurogical: no seizures, no headaches, no weakness, no paresthesias, no loss of speech or vision; no memory loss, no vertigo, no tremors, no numbness Psychiatric: stable mood; no excessive anxiety, sadness or moodiness Medications and Allergies Allergies Allergy/AdvReac Type Severity Reaction Status Date / Time Penicillins Allergy Severe Itching Verified 10/09/18 18:11 shellfish derived AdvReac Severe Anaphylaxis Verified 10/09/18 18:12 Home Medications Medication Instructions Recorded Confirmed Last Taken Type Ibuprofen [Motrin 800 MG tab] 800 mg PO TID PRN #30 tablet 11/11/18 Unknown Rx Pnv,Calcium 72/Iron/Folic Acid 1 tab PO DAILY 11/11/18 11/11/18 1 Day Ago History [Pnv Plus Multivit Tab] ~11/10/18 oxyCODONE /ACETAMINOPHEN [Percocet 1 - 2 tab PO Q4HR PRN #20 tablet 11/11/18 Unknown Rx 5/325 mg] Docusate Sodium [Colace] 100 mg PO BID PRN #60 capsule 11/13/18 Unknown Rx Ferrous Sulfate [Feosol 325 MG tab] 325 mg PO BID #60 tablet 11/13/18 Unknown Rx Active Meds: Active Medications Acetaminophen (Tylenol) 650 mg PO Q6H PRN PRN Reason: Pain, Mild (1-3) Ferrous Sulfate (Feosol) 325 mg PO BID [facility] Last Admin: 11/24/18 09:48 Dose: Not Given Documented by: Vancomycin HCl 2,500 mg/ (Sodium Chloride) 550 mls @ 250 mls/hr IV Q12H [facility] Last Admin: 11/24/18 09:47 Dose: 250 mls/hr Documented by: Lactated Ringer's (Lactated Ringers) 1,000 mls @ 125 mls/hr IV DIRECT [facility] Last Admin: 11/24/18 09:47 Dose: 125 mls/hr Documented by: Ibuprofen (Ibuprofen) 800 mg PO Q8H PRN PRN Reason: Pain, Mild (1-3) Last Admin: 11/24/18 02:15 Dose: 800 mg Documented by: Oxycodone/Acetaminophen (Percocet 5/325) 2 tab PO Q6H PRN PRN Reason: Pain, Moderate (4-6) Physical Examination - Physical Exam Narrative exam: General appearance: Alert in NAD Eyes: anicteric sclerae, moist conjunctivae; no lid-lag; PERRLA HENT: Atraumatic; oropharynx clear with moist mucous membranes and no mucosal ulcerations/no oral thrush; normal hard and soft palate. Lungs: CTA, with normal respiratory effort and no intercostal retractions CV: RRR no murmur Abdomen: Soft, + wound with upper mid induration with mild erythema, copious serous yellowish fluid. No johanne purulence seen. Extremities: no edema, no cyanosis Skin: No rash. Psych: Appropriate affect, alert and oriented to person, place and time. Neuro: alert and oriented x 3. Moving all extermities - Constitutional Vitals: Vital Signs Temp Pulse Resp BP Pulse Ox 98.5 F 77 18 126/75 97 11/24/18 08:02 11/24/18 08:02 11/24/18 08:02 11/24/18 08:02 11/23/18 18:23 Temperature -Last 24 Hours Temperature 98.5 F Temperature 98.4 F Temperature 98.7 F Temperature 98.7 F Temperature 99.5 F Results - Labs CBC & Chem 7: 11/23/18 18:02 11/23/18 18:02 Labs: Abnormal lab results 11/23/18 11/23/18 Range/Units 18:02 18:02 RBC 3.17 L (3.65-5.03) M/mm3 Hgb 9.8 L (10.1-14.3) gm/dl Hct 29.0 L (30.3-42.9) % RDW 12.4 L (13.2-15.2) % Plt Count 472 H (140-440) K/mm3 Lymph % (Auto) 11.1 L (13.4-35.0) % Seg Neutrophils % 83.3 H (40.0-70.0) % Seg Neutrophils # 9.0 H (1.8-7.7) K/mm3 Albumin 3.0 L (3.9-5) g/dL Assessment and Plan Assessment: 28 y/o female with no past medical history s/p on 11/11/2018, admitted with 4-day history of wound induration and drainage: 1) wound cellulitis v/s seroma v/s less likely early abscess: no evidence of sepsis. Treated as an outpatient with bactrim, hence I doubt wound culture would have a good yield. She denies previous history of MRSA/Staph boils. She is . 2) Penicillin allergy: last reaction when she was teenager with itching and rash. Recommendations: obtain wound culture obtain MRSA PCR start vancomycin with target trough 10-20 - to cover MSSA/MRSA/Strep Vancomycin is safe for as relative dose is minimal and no oral absorption for the I doubt GNRs causing cellulitis/abscess in this setting hence no need for GNR coverage, however will consider addition if not better in 48h Will follow. Dr Roberts will be covering tomorrow. Tory Banda MD Infectious Diseases [employer] [facility] M [phone] O [phone]
--- NOTE | 2018-11-24 11:00 | Progress Note ---
Assessment and Plan POD13 Patient resting in bed, reports feeling well. Dressing is leaking small amount of yellow drainage from bottom right side, otherwise, clean and intact. She reports that Dr. Salomon saw her this morning and that Dr. Fall saw her and told her she was planning to come back to re-dress wound as she needed to gather supplies that were not available on unit. Patient denies any pain, fever, chills, difficulty breathing, chest pain, or any other complaints. She reports lochia is minimal, brown. She is nursing/pumping for infant who is currently at bedside with visitor. She requests a double pump, RN notified and states she will get her one. VSSAF. Continue IV vanc and current POC set by ID/Gen Surg. Subjective - Subjective Date of service: 11/24/18 Principal diagnosis: wound infection Patient reports: appetite normal, voiding normally, pain well controlled, ambulating normally [place]: other (in room with visitor present who is caring for infant at time of rounds) Objective - Vital Signs Latest vital signs: Vital Signs Temp Pulse Resp BP Pulse Ox 11/24/18 08:02 98.5 F 77 18 126/75 11/24/18 04:00 98.4 F 78 16 114/72 11/23/18 23:30 98.7 F 64 18 112/71 11/23/18 19:30 98.7 F 77 18 121/72 11/23/18 18:23 99.5 F 97 H 14 139/75 97 Intake and Output 11/23/18 11/24/18 11/24/18 23:59 07:59 15:59 Intake Total 850 300 480 Balance 850 300 480 Intake: IV 550 Vancomycin 2,500 mg In 550 NaCl 0.9% 500 ml 500 ml @ 250 mls/hr IV Q12H [facility] Rx#:[id number] Oral 480 Intake, Free Water 300 300 Other: Total, Intake Amount 480 Voiding Method Toilet Weight 119.06 kg - Exam Breasts: Present: normal Cardiovascular: Present: Regular rate, Normal S1, Normal S2 Lungs: Present: Clear to auscultation, Normal air movement Abdomen: Present: normal appearance, soft, normal bowel sounds Vulva: both: normal Uterus: Present: normal, firm, fundal height below umbilicus Extremities: Present: normal Incision: Present: dressed (small amount of yellow drainage noted from bottom right of dressing) - Labs Labs: Abnormal lab results 11/23/18 11/23/18 Range/Units 18:02 18:02 RBC 3.17 L (3.65-5.03) M/mm3 Hgb 9.8 L (10.1-14.3) gm/dl Hct 29.0 L (30.3-42.9) % RDW 12.4 L (13.2-15.2) % Plt Count 472 H (140-440) K/mm3 Lymph % (Auto) 11.1 L (13.4-35.0) % Seg Neutrophils % 83.3 H (40.0-70.0) % Seg Neutrophils # 9.0 H (1.8-7.7) K/mm3 Albumin 3.0 L (3.9-5) g/dL
--- NOTE | 2018-11-24 12:17 | Consultation ---
History of Present Illness Consult date: 11/24/18 Reason for consult: wound care Chief complaint: "my wound is leaking" - History of present illness History of present illness: 28 year old female about 12 days post via was admitted for p ossible wound infection. She was placed on oral antibiotics 4 days ago and told to return if the incision started to drain. The wound was packed yesterday and a large amount of sero-sanguinous fluid was expressed, she was placed in vancomycin per ID. She has no complaints this morning, denies pain. Past History Past Medical History: migraines Past Surgical History: Medications and Allergies Allergies Allergy/AdvReac Type Severity Reaction Status Date / Time Penicillins Allergy Severe Itching Verified 10/09/18 18:11 shellfish derived AdvReac Severe Anaphylaxis Verified 10/09/18 18:12 Home Medications Medication Instructions Recorded Confirmed Last Taken Type Ibuprofen [Motrin 800 MG tab] 800 mg PO TID PRN #30 tablet 11/11/18 Unknown Rx Pnv,Calcium 72/Iron/Folic Acid 1 tab PO DAILY 11/11/18 11/11/18 1 Day Ago History [Pnv Plus Multivit Tab] ~11/10/18 oxyCODONE /ACETAMINOPHEN [Percocet 1 - 2 tab PO Q4HR PRN #20 tablet 11/11/18 Unknown Rx 5/325 mg] Docusate Sodium [Colace] 100 mg PO BID PRN #60 capsule 11/13/18 Unknown Rx Ferrous Sulfate [Feosol 325 MG tab] 325 mg PO BID #60 tablet 11/13/18 Unknown Rx Active Meds: Active Medications Acetaminophen (Tylenol) 650 mg PO Q6H PRN PRN Reason: Pain, Mild (1-3) Ferrous Sulfate (Feosol) 325 mg PO BID [facility] Last Admin: 11/24/18 09:48 Dose: Not Given Documented by: Lactated Ringer's (Lactated Ringers) 1,000 mls @ 125 mls/hr IV DIRECT [facility]IP Last Admin: 11/24/18 09:47 Dose: 125 mls/hr Documented by: Vancomycin HCl 1,250 mg/ (Sodium Chloride) 275 mls @ 166.667 mls/hr IV Q8H [facility] Ibuprofen (Ibuprofen) 800 mg PO Q8H PRN PRN Reason: Pain, Mild (1-3) Last Admin: 11/24/18 02:15 Dose: 800 mg Documented by: Oxycodone/Acetaminophen (Percocet 5/325) 2 tab PO Q6H PRN PRN Reason: Pain, Moderate (4-6) Review of Systems - Constitutional no fever, no chills, no sweats - Respiratory no shortness of breath - Gastrointestinal no abdominal pain, no nausea, no vomiting Exam Vital Signs Temp Pulse Resp BP Pulse Ox 99.5 F 97 H 14 139/75 97 11/23/18 18:23 11/23/18 18:23 11/23/18 18:23 11/23/18 18:23 11/23/18 18:23 - General physical appearance Positive: well developed, well nourished, no distress - Respiratory Positive: normal expansion, normal respiratory effort - Extremities Extremities: no ischemia - Abdomen Abdomen: Present: soft, other (obese, center of pannus is erythemetous and endurated. 2cm opening at center of incision. when packing was removed, significant about of sero-sanguinous fluid expressed. no odor, no purulence. non-tender to manipulation) Results - Labs 11/23/18 18:02 11/23/18 18:02 Abnormal lab results 11/23/18 11/23/18 Range/Units 18:02 18:02 RBC 3.17 L (3.65-5.03) M/mm3 Hgb 9.8 L (10.1-14.3) gm/dl Hct 29.0 L (30.3-42.9) % RDW 12.4 L (13.2-15.2) % Plt Count 472 H (140-440) K/mm3 Lymph % (Auto) 11.1 L (13.4-35.0) % Seg Neutrophils % 83.3 H (40.0-70.0) % Seg Neutrophils # 9.0 H (1.8-7.7) K/mm3 Albumin 3.0 L (3.9-5) g/dL Diabetes panel 11/23/18 Range/Units 18:02 Sodium 140 (137-145) mmol/L Potassium 4.4 (3.6-5.0) mmol/L Chloride 103.5 (98-107) mmol/L Carbon Dioxide 23 (22-30) mmol/L BUN 11 (7-17) mg/dL Creatinine 0.7 (0.7-1.2) mg/dL Glucose 100 (65-100) mg/dL Calcium 8.7 (8.4-10.2) mg/dL AST 13 (5-40) units/L ALT 12 (7-56) units/L Alkaline Phosphatase 124 (35-129) units/L Total Protein 6.3 (6.3-8.2) g/dL Albumin 3.0 L (3.9-5) g/dL Calcium panel 11/23/18 Range/Units 18:02 Calcium 8.7 (8.4-10.2) mg/dL Albumin 3.0 L (3.9-5) g/dL Pituitary panel 11/23/18 Range/Units 18:02 Sodium 140 (137-145) mmol/L Potassium 4.4 (3.6-5.0) mmol/L Chloride 103.5 (98-107) mmol/L Carbon Dioxide 23 (22-30) mmol/L BUN 11 (7-17) mg/dL Creatinine 0.7 (0.7-1.2) mg/dL Glucose 100 (65-100) mg/dL Calcium 8.7 (8.4-10.2) mg/dL Adrenal panel 11/23/18 Range/Units 18:02 Sodium 140 (137-145) mmol/L Potassium 4.4 (3.6-5.0) mmol/L Chloride 103.5 (98-107) mmol/L Carbon Dioxide 23 (22-30) mmol/L BUN 11 (7-17) mg/dL Creatinine 0.7 (0.7-1.2) mg/dL Glucose 100 (65-100) mg/dL Calcium 8.7 (8.4-10.2) mg/dL Total Bilirubin < 0.20 (0.1-1.2) mg/dL AST 13 (5-40) units/L ALT 12 (7-56) units/L Alkaline Phosphatase 124 (35-129) units/L Total Protein 6.3 (6.3-8.2) g/dL Albumin 3.0 L (3.9-5) g/dL Assessment and Plan wound complication after . drainage c/w seroma with cellulitus. continue abx, and consult wound care. will continue to follow.
--- NOTE | 2018-11-24 15:25 | Progress Note ---
Assessment and Plan - Patient Problems (1) Cellulitis of skin Current Visit: Yes Status: Acute Plan to address problem: -cont current antibx recommend by ID who has seen pt with graciela (2) Wound dehiscence Current Visit: Yes Status: Acute Plan to address problem: Pt seen by gen surgery chari owens recommendation is to await wound care evaluation. Order placed upon admission cont current care at this time and await further recommendations. Subjective - Subjective Date of service: 11/24/18 Principal diagnosis: wound infection Interval history: Pt doing well feeding . No c/o at this time. Patient reports: appetite normal, voiding normally, pain well controlled, no dizzy ambulation Objective - Vital Signs Latest vital signs: Vital Signs Temp Pulse Resp BP Pulse Ox 11/24/18 12:09 99.0 F 75 18 129/80 11/24/18 08:02 98.5 F 77 18 126/75 11/24/18 04:00 98.4 F 78 16 114/72 11/23/18 23:30 98.7 F 64 18 112/71 11/23/18 19:30 98.7 F 77 18 121/72 11/23/18 18:23 99.5 F 97 H 14 139/75 97 Intake and Output 11/24/18 11/24/18 11/24/18 06:59 14:59 22:59 Intake Total 300 960 Balance 300 960 Intake: Oral 960 Intake, Free Water 300 Other: Total, Intake Amount 480 - Exam Cardiovascular: Present: Normal S1, Normal S2 Lungs: Present: Normal air movement Abdomen: Present: other (deferred as pt feeding infant and dressing changed e chantal this am) Extremities: Present: normal. Absent: tenderness, edema - Labs Labs: Abnormal lab results 11/23/18 11/23/18 Range/Units 18:02 18:02 RBC 3.17 L (3.65-5.03) M/mm3 Hgb 9.8 L (10.1-14.3) gm/dl Hct 29.0 L (30.3-42.9) % RDW 12.4 L (13.2-15.2) % Plt Count 472 H (140-440) K/mm3 Lymph % (Auto) 11.1 L (13.4-35.0) % Seg Neutrophils % 83.3 H (40.0-70.0) % Seg Neutrophils # 9.0 H (1.8-7.7) K/mm3 Albumin 3.0 L (3.9-5) g/dL
[2018-11-24] MEDS: VANCOMYCIN 1,250 MG in NACL 0.9% 250ML 250 ML IV SCH (18:26)
[2018-11-24] MEDS ORDERED: VANCOMYCIN 2,000 MG in NACL 0.9% 500 ML 500 ML IV SCH (22:00)
[2018-11-25] MEDS: VANCOMYCIN 1,250 MG in NACL 0.9% 250ML 250 ML IV SCH ×3 (02:27→18:25)
--- NOTE | 2018-11-25 06:29 | Progress Note ---
Subjective Date of service: 11/25/18 (barrel straightener note) Principal diagnosis: wound infection Interval history: Pt awake caring for daughter. No c/o voiced Pt denies any pain @ wound site. VSS Afebrile. Dressing is dry and intact. Abdomen is soft NT. Pt is here with cellulitis/wound dehiscence ID and surgery have seen pt. Culture negative for MRSA. Pt is improving/doing well. P: will continue POC as noted. Will consult with . Objective - Constitutional Vitals: Vital Signs - 12hr 11/24/18 11/25/18 11/25/18 20:25 00:46 05:21 Temperature 98.5 F 98.2 F 98.4 F Pulse Rate 83 76 69 Respiratory 18 20 18 Rate Blood Pressure 134/82 126/75 143/81 O2 Sat by Pulse 97 98 99 Oximetry - Labs CBC & Chem 7: 11/23/18 18:02 11/23/18 18:02 Medications & Allergies - Medications Allergies/Adverse Reactions: Allergies Penicillins Allergy (Severe, Verified 10/09/18 18:11) Itching shellfish derived Adverse Reaction (Severe, Verified 10/09/18 18:12) Anaphylaxis Home Medications: Home Medications Medication Instructions Recorded Confirmed Last Taken Type Ibuprofen [Motrin 800 MG tab] 800 mg PO TID PRN #30 tablet 11/11/18 Unknown Rx Pnv,Calcium 72/Iron/Folic Acid 1 tab PO DAILY 11/11/18 11/11/18 1 Day Ago History [Pnv Plus Multivit Tab] ~11/10/18 oxyCODONE /ACETAMINOPHEN [Percocet 1 - 2 tab PO Q4HR PRN #20 tablet 11/11/18 Unknown Rx 5/325 mg] Docusate Sodium [Colace] 100 mg PO BID PRN #60 capsule 11/13/18 Unknown Rx Ferrous Sulfate [Feosol 325 MG tab] 325 mg PO BID #60 tablet 11/13/18 Unknown Rx Active Medications: Generic Name Dose Route Start Last Admin Trade Name Freq PRN Reason Stop Dose Admin Acetaminophen 650 mg 11/23/18 19:29 Tylenol PO Q6H PRN Pain, Mild (1-3) Ferrous Sulfate 325 mg 11/23/18 22:00 11/24/18 09:48 Feosol PO Not Given BID PHILIP Lactated Ringer's 1,000 mls @ 125 mls/hr 11/24/18 09:00 11/24/18 09:47 Lactated Ringers IV 125 mls/hr DIRECT [facility]IP Administration Vancomycin HCl 1,250 mg/ 275 mls @ 166.667 mls/hr 11/24/18 18:00 11/25/18 02:27 Sodium Chloride IV 166.667 mls/hr Q8H [facility] Administration Ibuprofen 800 mg 11/23/18 19:29 11/24/18 18:30 Ibuprofen PO 800 mg Q8H PRN Administration Pain, Mild (1-3) Oxycodone/Acetaminophen 2 tab 11/23/18 19:29 Percocet 5/325 PO Q6H PRN Pain, Moderate (4-6)
--- NOTE | 2018-11-25 07:53 | Event Note ---
Date: 11/25/18 Still with significant serosanguinous drainage from incision. Due concern for possible fascial defect/dehiscence will proceed with surgical exploration of the incision with possible repair of any defects. Concerns discussed with patient,the procedure was explained, questions encouraged and answered, she voiced understanding and agrees with plan of care. Dr. Fall present and agrees with assessment and plan.
--- NOTE | 2018-11-25 08:09 | Progress Note ---
Assessment and Plan wound complication, due to excessive drainage concerned about fascial dehiscence. Examined patient with Dr. Posadas, will explore wound today. Patient remains stable, and afebrile. Subjective Date of service: 11/25/18 Patient Reports: Positive: no new complaints (no acute events) Objective Vital Signs - 12hr 11/24/18 11/25/18 11/25/18 20:25 00:46 05:21 Temperature 98.5 F 98.2 F 98.4 F Pulse Rate 83 76 69 Respiratory 18 20 18 Rate Blood Pressure 134/82 126/75 143/81 Blood Pressure [Right] O2 Sat by Pulse 97 98 99 Oximetry 11/25/18 07:04 Temperature 98.4 F Pulse Rate 65 Respiratory 18 Rate Blood Pressure Blood Pressure 128/77 [Right] O2 Sat by Pulse Oximetry - General physical appearance well developed, no distress - Abdomen soft, not tender, other (significant sero-sanguinous drainage when packing tay kristian) - Labs 11/23/18 18:02 11/23/18 18:02
[2018-11-25] MEDS ORDERED: DECADRON ONE (09:27)
[2018-11-25] MEDS ORDERED: XYLOCAINE MPF 2% ONE (09:27)
[2018-11-25] MEDS ORDERED: ROBINUL ONE (09:27)
[2018-11-25] MEDS ORDERED: ZOFRAN ONE (09:27)
[2018-11-25] MEDS ORDERED: ZEMURON IV ONE (09:27)
[2018-11-25] MEDS ORDERED: BLOXIVERZ ONE (09:27)
[2018-11-25] MEDS ORDERED: DIPRIVAN 10 MG/ML IV ONE (09:28)
[2018-11-25] MEDS ORDERED: SUBLIMAZE ONE (09:28)
--- NOTE | 2018-11-25 09:35 | Anesthesia Consultation ---
Anesthesia Consult and Med Hx Date of service: 11/25/18 - Airway ROM Head & Neck: Adequate Mental/Hyoid Distance: Adequate Mallampati Class: Class II Intubation Access Assessment: Good - Pre-Operative Health Status ASA Pre-Surgery Classification: ASA1 Proposed Anesthetic Plan: General - Pulmonary Hx Smoking: No Hx Asthma: No Hx Respiratory Symptoms: No SOB: No COPD: No Hx Pneumonia: No Hx Sleep Apnea: No - Cardiovascular System Hx Hypertension: No Hx Coronary Artery Disease: No Hx Heart Attack/AMI: No Hx Angina: No Hx Percutaneous Transluminal Coronary Angioplasty (PTCA): No Hx Cardia Arrhythmia: No Hx Pacemaker: No Hx Internal Defibrillator: No Hx Valvular Heart Disease: No Hx Heart Murmur: No Hx Peripheral Vascular Disease: No - Central Nervous System Hx Neuromuscular Disorder: No Hx Seizures: No CVA: No Hx Back Pain: No Hx Psychiatric Problems: No - Gastrointestinal Hx Ulcer: No Hx Gastroesophageal Reflux Disease: Yes - Endocrine Hx Renal Disease: No Hx End Stage Renal Disease: No Hx Cirrhosis: No Hx Liver Disease: No Hx Insulin Dependent Diabetes: No Hx Non-Insulin Dependent Diabetes: No Hx Thyroid Disease: No Hx Hypothyroidism: No Hx Hyperthyroidism: No - Hematic Hx Anemia: No Hx Sickle Cell Disease: No - Other Systems Hx Alcohol Use: No Hx Substance Use: No Hx Cancer: No Hx Obesity: Yes (bmi 42)
--- NOTE | 2018-11-25 09:35 | Anesthesia Day of Surgery ---
Anesthesia Day of Surgery - Day of Surgery Patient Examined: Yes Patient H&P Reviewed: Yes Patient is NPO: Yes
[2018-11-25] MEDS: LACTATED RINGERS 1,000 ML IV SCH (09:47)
--- NOTE | 2018-11-25 10:16 | Progress Note ---
Assessment and Plan Cultures: 11/23/18 Wound: GNR Assessment: 28 y/o female with no past medical history s/p on 11/11/2018, admitted with 4-day history of wound induration and drainage: 1) wound cellulitis v/s seroma v/s less likely early abscess: no evidence of sepsis. Treated as an outpatient with bactrim, hence I doubt wound culture would have a good yield. She denies previous history of MRSA/Staph boils. She is . S/p wound exploration today. Seroma, no s/s infection, no obvious evidence of fascial defect per surgery. Appreciate cultures sent. 2) Penicillin allergy: last reaction when she was teenager with itching and rash. Recommendations: follow-up wound cultures for ID and susceptibility continue vancomycin with target trough 10-20 - to cover MSSA/MRSA/Strep Vancomycin is safe for as relative infant dose is minimal and no oral absorption for the [facility] M: [id number] O:[phone] Subjective Date of service: 11/25/18 Principal diagnosis: wound infection Interval history: Patient seen and examined. Reports abdominal tenderness. No fevers. Mom and baby at bedside. Objective - Exam Narrative Exam: General appearance: Alert in NAD Eyes: anicteric sclerae, moist conjunctivae; no lid-lag; PERRLA HENT: Atraumatic; oropharynx clear with moist mucous membranes and no mucosal ulcerations/no oral thrush; normal hard and soft palate. Lungs: CTA, with normal respiratory effort and no intercostal retractions CV: RRR no murmur Abdomen: Soft, + wound. + dressing with serosanguinous drainage. Extremities: no edema, no cyanosis Skin: No rash. Psych: Appropriate affect, alert and oriented to person, place and time. Neuro: alert and oriented x 3. Moving all extermities - Constitutional Vitals: Vital Signs Temp Pulse Resp BP Pulse Ox 98.4 F 65 18 128/77 99 11/25/18 07:04 11/25/18 07:04 11/25/18 07:04 11/25/18 07:04 11/25/18 05:21 Temperature -Last 24 Hours Temperature 98.4 F Temperature 98.4 F Temperature 98.2 F Temperature 98.5 F Temperature 98.9 F Temperature 99.0 F - Labs CBC & Chem 7: 11/23/18 18:02 11/23/18 18:02
--- NOTE | 2018-11-25 11:08 | Post Operative Note ---
Pre-op diagnosis: Wound dehiscence, seroma, possible fascial defect, obesity Post-op diagnosis: other (Wound dehiscence, seroma, obesity) Findings: Seroma, no s/s infection, no obvious evidence of fascial defect Procedure: Incision exploration/examination under anesthesia Anesthesia: MAC Surgeon: BOOM HARRINGTON Rib Knitter: AMOL GUTIERREZ Estimated blood loss: minimal Pathology: none Condition: stable Disposition: PACU
[2018-11-25] MEDS ORDERED: MORPHINE IV PRN (12:17)
[2018-11-25] MEDS ORDERED: ZOFRAN ODT PO PRN (12:17)
[2018-11-25] MEDS ORDERED: REGLAN PO PRN (12:17)
[2018-11-25] MEDS ORDERED: TYLENOL PO PRN (12:17)
--- NOTE | 2018-11-25 12:58 | Post Anesthesia Evaluation ---
- Post Anesthesia Evaluation Patient Participated: Yes Airway Patent: Yes Stable Respiratory Function: Yes Nausea/Vomiting: No Temp > 96.8F: Yes Pain Manageable: Yes Adequeate Hydration: Yes Anesthesia Complications: No
[2018-11-25] MEDS: IBUPROFEN PO PRN (18:25)
--- NOTE | 2018-11-25 20:39 | Progress Note ---
Assessment and Plan - Patient Problems (1) Wound dehiscence Current Visit: Yes Status: Acute Plan to address problem: Operative findings and procedure explained, plan of care discussed, questions encouraged and answered, she voiced understanding and agrees with POC Waiting for Wound care evaluation, case management assessment and wound cultures Continue Vancomycin for now (2) Cellulitis of skin Current Visit: Yes Status: Acute (3) delivery delivered Onset Date: ~11/11/18 Current Visit: No Status: Acute Subjective Date of service: 11/25/18 Patient Reports: Positive: no new complaints, tolerating a regular diet. Negative: vomiting Objective Vital Signs - 12hr 11/25/18 11/25/18 11/25/18 09:30 11:06 11:10 Temperature 97.7 F 97.5 F L Pulse Rate 85 79 63 Respiratory 18 16 16 Rate Blood Pressure 147/90 134/63 122/71 Blood Pressure [Right] O2 Sat by Pulse 98 100 100 Oximetry 11/25/18 11/25/18 11/25/18 11:15 11:20 11:25 Temperature Pulse Rate 54 L 67 67 Respiratory 18 17 16 Rate Blood Pressure 129/65 132/66 119/69 Blood Pressure [Right] O2 Sat by Pulse 100 100 99 Oximetry 11/25/18 11/25/18 11/25/18 11:30 11:40 11:50 Temperature 98 F Pulse Rate 69 61 64 Respiratory 15 16 17 Rate Blood Pressure 128/73 123/75 120/67 Blood Pressure [Right] O2 Sat by Pulse 98 100 98 Oximetry 11/25/18 11/25/18 12:07 16:39 Temperature 98.1 F 98.2 F Pulse Rate 74 75 Respiratory 18 18 Rate Blood Pressure Blood Pressure 131/84 146/72 [Right] O2 Sat by Pulse Oximetry - General physical appearance well developed, well nourished, no distress - Labs 11/23/18 18:02 11/23/18 18:02
[2018-11-25] MEDS: COLACE PO SCH (21:54)
[2018-11-25] MEDS ORDERED: LACTATED RINGERS 1,000 ML IV SCH (22:20)
[2018-11-26] MEDS: VANCOMYCIN 1,250 MG in NACL 0.9% 250ML 250 ML IV SCH (01:46)
[2018-11-26] MEDS: IBUPROFEN PO PRN (03:33)
[2018-11-26] MEDS ORDERED: BENADRYL PO PRN (04:22)
--- NOTE | 2018-11-26 04:29 | Operative Report ---
PREOPERATIVE DIAGNOSIS: Incision wound dehiscence, possible fascial defect. POSTOPERATIVE DIAGNOSIS: Incision wound dehiscence, possible fascial defect. PROCEDURE: Incision exploration. SURGEON: Melita Posadas MD CO-SURGEON: Hamzah Fall MD ANESTHESIA: General. COMPLICATIONS: None. ESTIMATED BLOOD LOSS: Minimal. DESCRIPTION OF PROCEDURE: After risks, benefits, complications and consequences of this procedure were discussed with patient, she voiced understanding and desired to proceed. She was taken to the OR, where she was placed in the supine position and general anesthesia was induced. She was then prepped and draped in the usual fashion. Timeout was performed. Then, her previous Pfannenstiel incision was incised and opened. Three 0 Vicryl sutures in the subcutaneous adipose tissue were removed. There was no evidence of obvious purulent drainage or infection. Upon inspection and exploration of the fascia, no obvious defects were noted. The fascia was probed with a cotton-tip applicator and again irrigated as well as probed manually. The incision was then again irrigated manually. The patient was placed in reverse Trendelenburg as well as elevation of the head. The abdomen was gently pressed to determine if any fluid from the abdominal cavity would be expressed through the incision. No fluid was noted. The patient was taken out of reverse Trendelenburg position. Again, the incision was irrigated. Again, no obvious fascial defect was noted, at which point the decision was made to end the procedure. The incision was then reapproximated using surgical stainless steel debbie. An iodoform was placed on the right aspect of the incision, and the incision was dressed with bulk pressure dressing. The patient tolerated the procedure well and was taken to recovery room in stable condition. JOB# [id number] MARI/JEANNE
--- NOTE | 2018-11-26 08:07 | Progress Note ---
Assessment and Plan Pt in good spirits. Denies pain. Baby at bedside and BF well. Will continue POC. - Patient Problems (1) Cellulitis of skin Current Visit: Yes Status: Acute Plan to address problem: Case management to see pt today to set up home health. Wound care to f/u with pt today. Continue current treatment per ID. (2) Itching Current Visit: Yes Status: Acute Plan to address problem: Pt reports itching with initial admin of vancomycin. Improved when given as piggyback with IVF. ID will be consulted. Pt denies SOB, MOISÉS, rash, or trouble swallowing. Subjective - Subjective Date of service: 11/26/18 (private duty nurse note) Principal diagnosis: wound infection Patient reports: appetite normal, voiding normally, pain well controlled, ambulating normally : doing well Objective - Vital Signs Latest vital signs: Vital Signs Temp Pulse Resp BP BP Pulse Ox 11/26/18 05:14 98.5 F 68 20 105/65 96 11/26/18 03:33 18 11/26/18 01:00 98.6 F 69 18 100/60 94 11/25/18 19:59 98.3 F 71 18 120/75 97 11/25/18 16:39 98.2 F 75 18 146/72 11/25/18 12:07 98.1 F 74 18 131/84 11/25/18 11:50 98 F 64 17 120/67 98 11/25/18 11:40 61 16 123/75 100 11/25/18 11:30 69 15 128/73 98 11/25/18 11:25 67 16 119/69 99 11/25/18 11:20 67 17 132/66 100 11/25/18 11:15 54 L 18 129/65 100 11/25/18 11:10 63 16 122/71 100 11/25/18 11:06 97.5 F L 79 16 134/63 100 11/25/18 09:30 97.7 F 85 18 147/90 98 Intake and Output 11/25/18 11/26/18 11/26/18 23:59 07:59 15:59 Intake Total 1055 120 Balance 1055 120 Intake: IV 275 Vancomycin 1,250 mg In 275 NaCl 0.9% 250Ml 250 ml @ 166.667 mls/hr IV Q8H [facility] Rx#:[id number] Oral 480 120 Intake, Free Water 300 Other: Total, Intake Amount 480 120 Voiding Method Toilet # Voids Void 1 1 - Exam Lungs: Present: Normal air movement
--- NOTE | 2018-11-26 08:34 | Event Note ---
Date: 11/26/18 Spoke with Geno Zaipen NP with ID and Vanc will be d/c at this time. Will await further recommendations.
--- NOTE | 2018-11-26 10:01 | Progress Note ---
Assessment and Plan Cultures: 11/23/18 Wound: E. Coli, susceptible to cephalosporins Assessment: 28 y/o female with no past medical history s/p on 11/11/2018, admitted with 4-day history of wound induration and drainage: 1) wound cellulitis v/s seroma v/s less likely early abscess: no evidence of sepsis. Treated as an outpatient with bactrim, hence I doubt wound culture would have a good yield. She denies previous history of MRSA/Staph boils. She is . S/p wound exploration today. Seroma, no s/s infection, no obvious evidence of fascial defect per surgery. Appreciate cultures sent. 2) Penicillin allergy: last reaction when she was teenager with itching and rash. Recommendations: Discontinued vancomycin due to reaction One dose of Cefepime 2 gms IV ordered for gram negative coverage - no reaction reported Deescalate to Ceftriaxone 2 gms IV every 24 hours- continue to monitor closely for reaction [facility] M: [phone] O:[phone] Subjective Date of service: 11/26/18 Principal diagnosis: wound infection Interval history: Patient seen and examined. Reports abdominal tenderness. No rash or SOB re ported. No fevers. Objective - Exam Narrative Exam: General appearance: Awake. Alert. Mild abdominal tenderness. Eyes: anicteric sclerae, moist conjunctivae; no lid-lag; PERRLA HENT: Atraumatic; oropharynx clear with moist mucous membranes and no mucosal ulcerations/no oral thrush; normal hard and soft palate. Lungs: CTA, with normal respiratory effort and no intercostal retractions CV: RRR no murmur Abdomen: Soft, + wound. + dressing c/d/i. Extremities: no edema, no cyanosis Skin: No rash. Psych: Appropriate affect, alert and oriented to person, place and time. Neuro: alert and oriented x 3. Moving all extermities - Constitutional Vitals: Vital Signs Temp Pulse Resp BP Pulse Ox 98.2 F 76 20 127/78 96 11/26/18 08:25 11/26/18 08:25 11/26/18 08:25 11/26/18 08:25 11/26/18 05:14 Temperature -Last 24 Hours Temperature 98.2 F Temperature 98.5 F Temperature 98.6 F Temperature 98.3 F Temperature 98.2 F Temperature 98.1 F Temperature 98 F Temperature 97.5 F - Labs CBC & Chem 7: 11/23/18 18:02 11/23/18 18:02
[2018-11-26] MEDS: FEOSOL PO SCH ×2 (10:20→10:21)
[2018-11-26] MEDS: COLACE PO SCH ×2 (10:21→22:05)
[2018-11-26] MEDS: PERCOCET 5/325 PO PRN ×2 (10:21→20:34)
[2018-11-26] MEDS ORDERED: MAXIPIME/NS 2 GM/100 ML 2 GM/100 ML BAG IV ONE (12:00)
--- NOTE | 2018-11-26 14:15 | Progress Note ---
Assessment and Plan s/p with wound complication. clinically c/w seroma as pt has no signs of infection. drainage has decreased. packing was changed by wound care, and she is scheduled to follow up with wound clinic next week and was taught how to change dressing at home. Subjective Date of service: 11/26/18 Patient Reports: Positive: no new complaints (Pt said that wound care came by and changed the dressing. Said it was noticeably less fluid drainage compared to prior to wound exploration yesterday) Objective Vital Signs - 12hr 11/26/18 11/26/18 11/26/18 03:33 05:14 08:25 Temperature 98.5 F 98.2 F Pulse Rate 68 76 Respiratory 18 20 20 Rate Blood Pressure 105/65 Blood Pressure 127/78 [Right] O2 Sat by Pulse 96 Oximetry - General physical appearance well developed, no distress - Abdomen not tender, other (dressing c/d/i) - Labs 11/23/18 18:02 11/23/18 18:02
[2018-11-26] MEDS: ROCEPHIN/NS 2 GM/100 ML 2 GM/100 ML BAG IV SCH (17:10)
[2018-11-27] MEDS: IBUPROFEN PO PRN ×2 (00:46→12:45)
[2018-11-27 00:58] LABS: Basophils % (Auto) 0.3 % (0.0-1.8); Eosinophils # (Auto) 0.1 K/mm3 (0.0-0.4); Eosinophils % (Auto) 1.3 % (0.0-4.3); Hemoglobin 8.8 gm/dl (10.1-14.3); Lymphocytes % (Auto) 21.5 % (13.4-35.0); Mean Corpuscular HGB Conc 33 % (30-34); Mean Corpuscular Volume 91 fl (79-97); Monocytes # (Auto) 0.5 K/mm3 (0.0-0.8); Monocytes % (Auto) 5.4 % (0.0-7.3); Platelet Count 494 K/mm3 (140-440); Red Blood Count 2.98 M/mm3 (3.65-5.03); Red Cell Distribution Width 12.5 % (13.2-15.2)
[2018-11-27] MEDS: PERCOCET 5/325 PO PRN ×3 (05:45→22:55)
--- NOTE | 2018-11-27 08:47 | Progress Note ---
Assessment and Plan patient in restroom will evaluate at lunch - Patient Problems (1) Wound dehiscence Current Visit: Yes Status: Acute (2) Cellulitis of skin Current Visit: Yes Status: Acute (3) delivery delivered Onset Date: ~11/11/18 Current Visit: No Status: Acute Subjective - Subjective Date of service: 11/27/18 Principal diagnosis: wound infection Interval history: This is a 28 year-old female s/p delivery 11/11/2018 for nonreassuring heart tracing that occurred after progressing to 7cm cervical dilation on induction day 2 for post term. She presented to the office Saturday for incision check. At that time the area above and below the incision was red, firmess noted above incision appearing to be cellulitis. Patient denied fevers but reported some night sweats. After assessing the incision, she was started on Bactrim (no defects were noted at the incision site). She called today complaining of yellow drainage from incision. She denies fever or any other changes with incision. She's admitted for IV ABX. Patient is agreeable with plan. Past History : 1 Term Births: 1 Premature Births: 0 Living Children: 1 Para: 0 Mult. Births: 0 Prev : 1 Aborta: 0 Elect. Ab: 0 Spont. Ab: 0 Ectopics: 0 Risk Factors: Smoked Tobacco Use: Never smoker Smokeless Tobacco Use: Never Passive smoke exposure: no Drug use: no HIV high-risk behavior: low risk Alcohol use: yes Type: occ Drinks per day: <1 Seatbelt use: preg-scholarship counselor % Dietary Counseling: pn yes Past Medical History: migraines, since 2011, takes fioricet Past Surgical History: wisdom teeth removal delivery Abnormal PAP: negative KI Exposure: negative Infertility: negative Uterine Anomaly: negative Uterine Surgery (not C/S): negative Other Gynecologic Problems: negative Family Hx: denies Social Hx: Patient is occ etoh, no tobacco, 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 of genital herpes: no Partner hx. of genital herpes: no Rash, Viral, or Febrile illness since last LMP? no Varicella/Chicken Pox Status: Immunized TB Risk: no Enviromental Exposures Enviromental Exposures Reviewed Xray Exposure: no Medication, drug, or alcohol use since LMP: no Chemical/Other Exposure: no Exposure to Cat Liter: no Hx of Parvovirus (Fifth Disease): no Occupational Exposure to Children: none Active Medications (reviewed today): PNV BACTRIM DS Current Allergies (reviewed today): * ANY TYPE OF PENICILLAN (Severe) SHELLFISH Objective - Vital Signs Latest vital signs: Vital Signs Temp Pulse Resp BP BP Pulse Ox 11/27/18 07:12 98.8 F 79 20 119/76 96 11/27/18 05:45 18 11/27/18 04:30 98.4 F 78 19 119/74 11/27/18 00:46 18 11/26/18 23:30 98.6 F 69 18 112/62 11/26/18 20:34 18 11/26/18 19:30 98.7 F 66 18 115/74 11/26/18 16:55 98.1 F 82 20 123/78 11/26/18 12:45 98.2 F 70 20 118/73 Intake and Output 11/26/18 11/27/18 11/27/18 22:59 06:59 14:59 Intake Total 460 200 Balance 460 200 Intake: IV 100 ROCEPHIN/NS 2 GM/100 ML 2 100 gm In 100 ml @ 200 mls/ hr IV Q24H PHILIP Rx#: [id number] Oral 360 200 Other: Total, Intake Amount 240 200 Voiding Method Toilet # Voids Void 1 # Bowel Movements 0 - Labs Labs: Abnormal lab results 11/27/18 Range/Units 00:39 RBC 2.98 L (3.65-5.03) M/mm3 Hgb 8.8 L (10.1-14.3) gm/dl Hct 27.0 L (30.3-42.9) % RDW 12.5 L (13.2-15.2) % Plt Count 494 H (140-440) K/mm3 Seg Neutrophils % 71.5 H (40.0-70.0) %
--- NOTE | 2018-11-27 09:49 | Progress Note ---
Assessment and Plan Cultures: 11/23/18 Wound: E. Coli, susceptible to cephalosporins Assessment: 28 y/o female with no past medical history s/p on 11/11/2018, admitted with 4-day history of wound induration and drainage: 1) wound cellulitis v/s seroma v/s less likely early abscess: no evidence of sepsis. Treated as an outpatient with bactrim, hence I doubt wound culture would have a good yield. She denies previous history of MRSA/Staph boils. She is . S/p wound exploration today. Seroma, no s/s infection, no obvious evidence of fascial defect per surgery. Appreciate cultures sent. 2) Penicillin allergy: last reaction when she was teenager with itching and rash. tolerating cephalosporins w/o reaction 3) Vancomycin allergy. Recommendations: continue Ceftriaxone 2 gms IV every 24 hours- continue to monitor closely for reaction [facility] M: [id number] O:[phone] Subjective Date of service: 11/27/18 Principal diagnosis: wound infection Interval history: Patient seen and examined. Reports abdominal tenderness and continued drainage at the site. No rash or SOB reported. No fevers. Objective - Exam Narrative Exam: General appearance: Awake. Alert. Mild abdominal tenderness. Eyes: anicteric sclerae, moist conjunctivae; no lid-lag; PERRLA HENT: Atraumatic; oropharynx clear with moist mucous membranes and no mucosal ulcerations/no oral thrush; normal hard and soft palate. Lungs: CTA, with normal respiratory effort and no intercostal retractions CV: RRR no murmur Abdomen: Soft, + wound. + dressing. +serosanguineous drainage Extremities: no edema, no cyanosis Skin: No rash. Psych: Appropriate affect, alert and oriented to person, place and time. Neuro: alert and oriented x 3. Moving all extermities - Constitutional Vitals: Vital Signs Temp Pulse Resp BP Pulse Ox 98.8 F 79 20 119/76 96 11/27/18 07:12 11/27/18 07:12 11/27/18 07:12 11/27/18 07:12 11/27/18 07:12 Temperature -Last 24 Hours Temperature 98.8 F Temperature 98.4 F Temperature 98.6 F Temperature 98.7 F Temperature 98.1 F Temperature 98.2 F - Labs CBC & Chem 7: 11/27/18 00:39 11/23/18 18:02 Labs: Abnormal lab results 11/27/18 Range/Units 00:39 RBC 2.98 L (3.65-5.03) M/mm3 Hgb 8.8 L (10.1-14.3) gm/dl Hct 27.0 L (30.3-42.9) % RDW 12.5 L (13.2-15.2) % Plt Count 494 H (140-440) K/mm3 Seg Neutrophils % 71.5 H (40.0-70.0) %
[2018-11-27] MEDS: FEOSOL PO SCH (11:23)
[2018-11-27] MEDS: COLACE PO SCH ×2 (11:23→22:56)
--- NOTE | 2018-11-27 20:21 | Event Note ---
Date: 11/27/18 Patient resting in bed with baby ib her chest and visitor lying on sofa, no complaints She was informed she will be allow home once HHC has been established and her antibiotic regimen has been determined She voiced understanding and agrees with plan of care
[2018-11-28] MEDS: PERCOCET 5/325 PO PRN ×3 (06:51→21:11)
--- NOTE | 2018-11-28 08:05 | Progress Note ---
Assessment and Plan Pt lying in bed quietly with sleeping in arms. VVSAF. ABD dressing clean, dry, intact. Occasional vaginal spotting. Pain 04/03. Per case management note home health has been established. Awaiting ID f/u. - Patient Problems (1) Cellulitis of skin Current Visit: Yes Status: Acute Plan to address problem: D/C home pending ID f/u today. (2) Itching Current Visit: Yes Status: Resolved Subjective - Subjective Date of service: 11/28/18 (INTERNAL AUDIT CONSULTANT note) Principal diagnosis: wound infection Patient reports: appetite normal, voiding normally, pain well controlled, ambulating normally, no dizzy ambulation, no nauseated : doing well Objective - Vital Signs Latest vital signs: Vital Signs Temp Pulse Pulse Resp BP BP Pulse Ox 11/28/18 04:00 98.7 F 78 18 124/80 11/28/18 00:30 98.4 F 76 16 130/70 11/27/18 20:00 82 18 11/27/18 19:30 98.7 F 77 18 140/80 11/27/18 16:21 98.4 F 63 20 132/80 99 11/27/18 11:26 98.9 F 85 20 136/84 98 11/27/18 11:23 20 Intake and Output 11/27/18 11/28/18 11/28/18 23:59 07:59 15:59 Intake Total 540 Balance 540 Intake: Oral 240 Intake, Free Water 300 Other: Total, Intake Amount 240 Voiding Method Toilet # Voids Void 1 - Exam Cardiovascular: Present: Regular rate Lungs: Present: Normal air movement Abdomen: Present: normal appearance (ABD dressing clean, dry, intact)
--- NOTE | 2018-11-28 10:19 | Progress Note ---
Assessment and Plan Cultures: 11/23/18 Wound: E. Coli, susceptible to cephalosporins Assessment: 28 y/o female with no past medical history s/p on 11/11/2018, admitted with 4-day history of wound induration and drainage: 1) wound cellulitis v/s seroma v/s less likely early abscess: no evidence of sepsis. Treated as an outpatient with bactrim, hence I doubt wound culture would have a good yield. She denies previous history of MRSA/Staph boils. She is . S/p wound exploration today. Seroma, no s/s infection, no obvious evidence of fascial defect per surgery. Appreciate cultures sent. 2) Penicillin allergy: last reaction when she was teenager with itching and rash. tolerating cephalosporins w/o reaction 3) Vancomycin allergy. Recommendations: -continue Ceftriaxone 2 gms IV every 24 hours- continue to monitor closely for reaction -Anticipate discharge on Cefdinir 300 mg PO BID for total 2 weeks - End date 12/10/18 Dr. Roberts will be environmental services supervisor this weekend, . Please call for questions. Geno James NP [facility] M: [id number] O:[phone] Subjective Date of service: 11/28/18 Principal diagnosis: wound infection Interval history: Patient seen and examined. Siting up in the chair with baby. Reports improved abdominal tenderness. No drainage at dressing site. No SOB or rash. No fevers. Objective - Exam Narrative Exam: General appearance: Awake. Alert. No acute distress Eyes: anicteric sclerae, moist conjunctivae; no lid-lag; PERRLA HENT: Atraumatic; oropharynx clear with moist mucous membranes and no mucosal ulcerations/no oral thrush; normal hard and soft palate. Lungs: CTA, with normal respiratory effort and no intercostal retractions CV: RRR no murmur Abdomen: Soft, + wound. + dressing c/d/i Extremities: no edema, no cyanosis Skin: No rash. Psych: Appropriate affect, alert and oriented to person, place and time. Neuro: alert and oriented x 3. Moving all extermities - Constitutional Vitals: Vital Signs Temp Pulse Resp BP Pulse Ox 98.7 F 78 18 124/80 99 11/28/18 04:00 11/28/18 04:00 11/28/18 04:00 11/28/18 04:00 11/27/18 16:21 Temperature -Last 24 Hours Temperature 98.7 F Temperature 98.4 F Temperature 98.7 F Temperature 98.4 F Temperature 98.9 F - Labs CBC & Chem 7: 11/27/18 00:39 11/23/18 18:02
[2018-11-28] MEDS: FEOSOL PO SCH (10:58)
[2018-11-28] MEDS: COLACE PO SCH ×2 (10:58→21:11)
[2018-11-28] MEDS: IBUPROFEN PO PRN ×2 (11:01→20:08)
[2018-11-28] MEDS: ROCEPHIN/NS 2 GM/100 ML 2 GM/100 ML BAG IV SCH ×2 (16:00→16:05)
[2018-11-29] MEDS: IBUPROFEN PO PRN ×2 (03:24→10:55)
--- NOTE | 2018-11-29 07:31 | Discharge Summary ---
Providers - Providers Date of Admission: 11/23/18 16:45 Date of discharge: 11/29/18 (pt agrees with d/c) Attending physician: BOOM HARRINGTON 11/23/18 19:02 Consult to Case Management [CONS] Routine Services Needed at Discharge: Home Health Services Notified:: cm notified Additional Physician Instructions: wound care Consult to Physician [CONS] Routine Comment: Consulting Provider: AMOL GUTIERREZ Physician Instructions: Reason For Exam: wound evaluation Consult to Wound/ET Nurse [CONS] Routine Reason For Exam: wound eval 11/23/18 19:04 Consult to Physician [CONS] Routine Comment: Consulting Provider: LEOBARDO YE Physician Instructions: Reason For Exam: wound infection Primary care physician: AMBER RAMÍREZ Hospitalization Reason for admission: wound infection Condition: Good Procedures: inspection of wound under anesthesia Hospital course: admitted on 11-23-18 with cellulites and wound infection Pt in good spirits Req d/c today if possible Afebrile VSS Wound dressed D&I No evidence of redness or tenderness surrounding area Day #6 s/p admission for wound infection Pt is much improved P: Pt has been cleared for d/c via ID Will provide RX for ABX Cefdinir Pt has appt with wound care Saturday. Pt and family verbalizes how to care for wound She will f/u with our office next week 12-04-18 @ [id number] All questions addressed Disposition: [id number] HOME UNDER HOME HLTH - Discharge Diagnoses (1) Wound infection after surgery Status: Acute Comment: Home health has been arranged Appt Saturday with Wound Care (2) Cellulitis of skin Status: Acute Comment: Pt d/c on po ABX Core Measure Documentation - Palliative Care Palliative Care/ Comfort Measures: Not Applicable - Core Measures Any of the following diagnoses?: none - VTE Discharge Requirements Deep Vein Thrombosis/Pulmonary Embolism Present on Admission: No Has pt received <5 days of overlap therapy or INR<2.0: No Anticoagulant overlap therapy prescribed at discharge: No Contraindication No Overlap Therapy order at DC: Not Indicated - Acute IA Discharge Requirements Aspirin at discharge: No Reason for no aspirin on DC: Medical contraindication LIGIA/ARB for LVSD if EF <40%: Not Applicable Reason for no LIGIA/ARB: Medical contraindication Beta naren at discharge: No Reason for no beta naren on DC: Medical contraindication Statin for LDL = or >100 mg/dl on DC: Not Applicable Reason for no statin on DC: Medical contraindication - Heart Failure Discharge Requirements LIGIA/ARB for LVSD if EF <40%: Not Applicable Reason for no LIGIA/ARB: Medical contraindication Beta naren at discharge: No Reason for no beta naren on DC: Medical contraindication - Stroke Discharge Requirements Statin for LDL = or >70 mg/dl on DC: Not Applicable Reason for no statin on DC: Not Indicated Anticoag for atrial fib/atrial flutter: Not Applicable Reason for no anticoag for AF/F on DC: Not Indicated Antithrombotic for ischemic stroke: No Reason for no antithrombotic on DC: Not Indicated Exam - Constitutional Vitals: Temp Pulse Resp BP Pulse Ox 98.1 F 68 18 137/76 99 11/29/18 04:35 11/29/18 04:35 11/29/18 04:35 11/29/18 04:35 11/29/18 04:35 General appearance: Present: no acute distress, well-nourished - EENT Eyes: Present: PERRL ENT: hearing intact, clear oral mucosa - Neck Neck: Present: supple, normal ROM - Cardiovascular Rhythm: regular - Extremities Extremities: pulses symmetrical, No edema Peripheral Pulses: within normal limits - Abdominal General gastrointestinal: Present: soft, non-tender, normal bowel sounds Female genitourinary: Present: deferred - Rectal Rectal Exam: deferred - Integumentary Integumentary: Present: clear, warm, dry - Musculoskeletal Musculoskeletal: gait normal, strength equal bilaterally - Psychiatric Psychiatric: appropriate mood/affect, intact judgment & insight - Neurologic Neurologic: CNII-XII intact, moves all extremities Plan Activity: advance as tolerated Weight Bearing Status: Weight Bear as Tolerated Diet: advance as tolerated Wound: per wound nurse instructions Special Instructions: no heavy lifting, home health RN Care Plan Goals: f/u as instructed with wound care, OB and home health Follow up with: AMBER RAMÍREZ MD [Primary Care Provider] - 12/04/18 2:15 pm (Call [phone] with any concerns/questions. Take medications as prescribed. Hydration, rest, keep appointments as scheduled. No heavy lifting. Do not get dressing wet.)
[2018-11-29] MEDS: FEOSOL PO SCH (10:46)
[2018-11-29] MEDS: COLACE PO SCH (10:55)
[2018-11-29 12:07] VITALS: BP 138/86
== END 2018-11-29 13:30 | disposition home health service (06) | DRG 769 ==
LOC: OB 16:45 → UNDODISIN 11-29 11:27
PROVIDERS: ADMIT Obstetrics & Gynecology; ATTEND Obstetrics & Gynecology
PROC: 0WJF0ZZ Inspection of Abdominal Wall, Open Approach (ICD-10-PCS; principal; 2018-11-25)
DX: O86.01 Infection of obstetric surgical wound, superficial incisional site (principal); O90.2 Hematoma of obstetric wound; O90.0 Disruption of cesarean delivery wound; Z88.8 Allergy status to other drugs, medicaments and biological substances; Z88.0 Allergy status to penicillin; Z91.013 Allergy to seafood; O99.355 Diseases of the nervous system complicating the puerperium; G43.909 Migraine, unspecified, not intractable, without status migrainosus; O99.215 Obesity complicating the puerperium; O99.63 Diseases of the digestive system complicating the puerperium; K21.9 Gastro-esophageal reflux disease without esophagitis
CPT/HCPCS: 36415; 80053; 80202; 85025; 86850; 86900; 86901; 87076; 87116; 87186; 87641; G0378; J0692; J0696; J1100; J2405; J2704; J2710; J3010; J3370; J7040; J7050; J7120

== ENCOUNTER 2018-12-02 10:07 | Outpatient (CLI) | payer MEDICAID ==
[2018-12-02] MEDS ORDERED: XYLOCAINE TOPICAL 4% TP ONE (11:00)
== END 2018-12-02 10:08 | disposition home or self-care (01) ==
LOC: WOUND 10:07
PROVIDERS: ATTEND Surgery
DX: T81.89XD Other complications of procedures, not elsewhere classified, subsequent encounter (principal); Z87.891 Personal history of nicotine dependence; Y83.8 Other surgical procedures as the cause of abnormal reaction of the patient, or of later complication, without mention of misadventure at the time of the procedure
CPT/HCPCS: 11042; G0463; 99215

== ENCOUNTER 2018-12-09 10:52 | Outpatient (CLI) | payer MEDICAID ==
[2018-12-09] MEDS ORDERED: XYLOCAINE TOPICAL 4% TP ONE (11:18)
== END 2018-12-09 10:53 | disposition home or self-care (01) ==
LOC: WOUND 10:52
PROVIDERS: ATTEND Surgery
DX: T81.89XD Other complications of procedures, not elsewhere classified, subsequent encounter (principal); Z87.891 Personal history of nicotine dependence; Y83.8 Other surgical procedures as the cause of abnormal reaction of the patient, or of later complication, without mention of misadventure at the time of the procedure
CPT/HCPCS: 87116

== ENCOUNTER 2018-12-23 10:56 | Outpatient (CLI) | payer MEDICAID | END 2018-12-23 10:57 | disposition home or self-care (01) | LOC: WOUND 10:56 | PROVIDERS: ATTEND Surgery | DX: T81.89XD Other complications of procedures, not elsewhere classified, subsequent encounter (principal); Z87.891 Personal history of nicotine dependence; Y83.8 Other surgical procedures as the cause of abnormal reaction of the patient, or of later complication, without mention of misadventure at the time of the procedure | CPT/HCPCS: 97605 ==

== ENCOUNTER 2018-12-30 09:41 | Outpatient (CLI) | payer MEDICAID ==
[2018-12-30] MEDS ORDERED: LIDOCAINE (4%) 40 MG/ML TOPICAL SOLN 50 ML BOTTLE TP ONE (10:30)
== END 2018-12-30 09:42 | disposition home or self-care (01) ==
LOC: WOUND 09:41
PROVIDERS: ATTEND Surgery
DX: T81.89XD Other complications of procedures, not elsewhere classified, subsequent encounter (principal); Z87.891 Personal history of nicotine dependence; Y83.8 Other surgical procedures as the cause of abnormal reaction of the patient, or of later complication, without mention of misadventure at the time of the procedure
CPT/HCPCS: 97605

== ENCOUNTER 2019-01-06 10:52 | Outpatient (CLI) | payer MEDICAID ==
[2019-01-06] MEDS ORDERED: XYLOCAINE TOPICAL 4% TP ONE (11:12)
== END 2019-01-06 10:53 | disposition home or self-care (01) ==
LOC: WOUND 10:52
PROVIDERS: ATTEND Surgery
DX: T81.89XD Other complications of procedures, not elsewhere classified, subsequent encounter (principal); Z87.891 Personal history of nicotine dependence; Y83.8 Other surgical procedures as the cause of abnormal reaction of the patient, or of later complication, without mention of misadventure at the time of the procedure
CPT/HCPCS: 97605

== ENCOUNTER 2019-01-09 12:29 | Outpatient (CLI) | payer MEDICAID | END 2019-01-09 12:30 | disposition home or self-care (01) | LOC: WOUND 12:29 | PROVIDERS: ATTEND Surgery | DX: T81.89XD Other complications of procedures, not elsewhere classified, subsequent encounter (principal); Z87.891 Personal history of nicotine dependence; Y83.8 Other surgical procedures as the cause of abnormal reaction of the patient, or of later complication, without mention of misadventure at the time of the procedure | CPT/HCPCS: 97605 ==

== ENCOUNTER 2019-01-13 10:52 | Outpatient (CLI) | payer MEDICAID | END 2019-01-13 10:53 | disposition home or self-care (01) | LOC: WOUND 10:52 | PROVIDERS: ATTEND Surgery | DX: T81.89XD Other complications of procedures, not elsewhere classified, subsequent encounter (principal); Z87.891 Personal history of nicotine dependence; Y83.8 Other surgical procedures as the cause of abnormal reaction of the patient, or of later complication, without mention of misadventure at the time of the procedure ==

== ENCOUNTER 2019-01-16 13:31 | Outpatient (CLI) | payer MEDICAID | END 2019-01-16 13:32 | disposition home or self-care (01) | LOC: WOUND 13:31 | PROVIDERS: ATTEND Surgery | DX: T81.89XD Other complications of procedures, not elsewhere classified, subsequent encounter (principal); Z87.891 Personal history of nicotine dependence; Y83.8 Other surgical procedures as the cause of abnormal reaction of the patient, or of later complication, without mention of misadventure at the time of the procedure | CPT/HCPCS: 97605 ==

== ENCOUNTER 2019-01-20 10:27 | Outpatient (CLI) | payer MEDICAID ==
[2019-01-20] MEDS ORDERED: SILVER NITRATE APPLICATOR 1 EA TP ONE (11:00)
[2019-01-20] MEDS ORDERED: LIDOCAINE (4%) 40 MG/ML TOPICAL SOLN 50 ML BOTTLE TP ONE (11:00)
== END 2019-01-20 10:28 | disposition home or self-care (01) ==
LOC: WOUND 10:27
PROVIDERS: ATTEND Surgery
DX: T81.89XD Other complications of procedures, not elsewhere classified, subsequent encounter (principal); Z87.891 Personal history of nicotine dependence; Y83.8 Other surgical procedures as the cause of abnormal reaction of the patient, or of later complication, without mention of misadventure at the time of the procedure
CPT/HCPCS: 97605

== ENCOUNTER 2019-01-23 10:56 | Outpatient (CLI) | payer MEDICAID | END 2019-01-23 10:57 | disposition home or self-care (01) | LOC: WOUND 10:56 | PROVIDERS: ATTEND Surgery | DX: T81.89XD Other complications of procedures, not elsewhere classified, subsequent encounter (principal); Z87.891 Personal history of nicotine dependence; Y83.8 Other surgical procedures as the cause of abnormal reaction of the patient, or of later complication, without mention of misadventure at the time of the procedure | CPT/HCPCS: 99212; G0463 ==

== ENCOUNTER 2019-01-27 10:44 | Outpatient (CLI) | payer MEDICAID ==
[2019-01-27] MEDS ORDERED: LIDOCAINE (4%) 40 MG/ML TOPICAL SOLN 50 ML BOTTLE TP ONE (10:53)
== END 2019-01-27 10:45 | disposition home or self-care (01) ==
LOC: WOUND 10:44
PROVIDERS: ATTEND Surgery
DX: T81.89XD Other complications of procedures, not elsewhere classified, subsequent encounter (principal); Z87.891 Personal history of nicotine dependence; Y83.8 Other surgical procedures as the cause of abnormal reaction of the patient, or of later complication, without mention of misadventure at the time of the procedure

== ENCOUNTER 2019-02-03 08:13 | Outpatient (CLI) | payer MEDICAID ==
[2019-02-03] MEDS ORDERED: LIDOCAINE (4%) 40 MG/ML TOPICAL SOLN 50 ML BOTTLE TP NR (08:30)
== END 2019-02-03 08:14 | disposition home or self-care (01) ==
LOC: WOUND 08:13
PROVIDERS: ATTEND Surgery
DX: T81.89XD Other complications of procedures, not elsewhere classified, subsequent encounter (principal); Z87.891 Personal history of nicotine dependence; Y83.8 Other surgical procedures as the cause of abnormal reaction of the patient, or of later complication, without mention of misadventure at the time of the procedure

== ENCOUNTER 2019-02-10 08:06 | Outpatient (CLI) | payer MEDICAID ==
[2019-02-10] MEDS ORDERED: LIDOCAINE (4%) 40 MG/ML TOPICAL SOLN 50 ML BOTTLE TP NR (08:30)
== END 2019-02-10 08:07 | disposition home or self-care (01) ==
LOC: WOUND 08:06
PROVIDERS: ATTEND Surgery
DX: T81.89XD Other complications of procedures, not elsewhere classified, subsequent encounter (principal); Z87.891 Personal history of nicotine dependence; Y83.8 Other surgical procedures as the cause of abnormal reaction of the patient, or of later complication, without mention of misadventure at the time of the procedure

== ENCOUNTER 2019-02-17 08:25 | Outpatient (CLI) | payer MEDICAID ==
[2019-02-17] MEDS ORDERED: LIDOCAINE (4%) 40 MG/ML TOPICAL SOLN 50 ML BOTTLE TP ONE (09:30)
== END 2019-02-17 08:26 | disposition home or self-care (01) ==
LOC: WOUND 08:25
PROVIDERS: ATTEND Surgery
DX: T81.89XD Other complications of procedures, not elsewhere classified, subsequent encounter (principal); Z87.891 Personal history of nicotine dependence; Y83.8 Other surgical procedures as the cause of abnormal reaction of the patient, or of later complication, without mention of misadventure at the time of the procedure

== ENCOUNTER 2019-02-24 08:59 | Outpatient (CLI) | payer MEDICAID, OTHER | END 2019-02-24 09:00 | disposition home or self-care (01) | LOC: WOUND 08:59 | PROVIDERS: ATTEND Surgery | DX: T81.89XD Other complications of procedures, not elsewhere classified, subsequent encounter (principal); Z87.891 Personal history of nicotine dependence; Y83.8 Other surgical procedures as the cause of abnormal reaction of the patient, or of later complication, without mention of misadventure at the time of the procedure ==

== ENCOUNTER 2019-03-03 08:30 | Outpatient (CLI) | payer MEDICAID, OTHER ==
[2019-03-03] MEDS ORDERED: LIDOCAINE (4%) 40 MG/ML TOPICAL SOLN 50 ML BOTTLE TP ONE (09:00)
== END 2019-03-03 08:31 | disposition home or self-care (01) ==
LOC: WOUND 08:30
PROVIDERS: ATTEND Surgery
DX: T81.89XD Other complications of procedures, not elsewhere classified, subsequent encounter (principal); Z87.891 Personal history of nicotine dependence; Y83.8 Other surgical procedures as the cause of abnormal reaction of the patient, or of later complication, without mention of misadventure at the time of the procedure
CPT/HCPCS: 99213; G0463